=== PATIENT | female | born 1955 | race Caucasian/White ===

== ENCOUNTER → 2017-04-10 | Outpatient (CLI) | payer MEDICARE, MEDICAID ==
[~2017-04-10] MED LIST: DEPA500T2; RISP4TAB
--- NOTE | 2017-04-10 18:03 | REP ---
Clinical: Headache . Findings: Age-related atrophy and microvascular ischemic changes are appreciated. The ventricles and sulci are symmetric. Solorio-white differentiation is maintained. There is no evidence for acute intracranial hemorrhage, mass/mass effect, pathology or infarction. No extra-axial fluid collection. Calvarium is intact. Paranasal sinuses and mastoid air cells are clear. Impression: Age related atrophy and microvascular ischemic changes. No acute intracranial hemorrhage, infarction, or mass/mass effect. Signed by Beau Palomino MD 04/10/2017 05:55 P
== END ==
LOC: M RAD 17:29
PROVIDERS: ATTEND Family Medicine Addiction Medicine
DX: I67.82 Cerebral ischemia (principal); R51 Headache

== ENCOUNTER → 2017-06-15 | Outpatient (REF) | payer MEDICARE | LOC: M LAB REF 09:55 | PROVIDERS: ATTEND Physician Assistant Medical | DX: J02.9 Acute pharyngitis, unspecified (principal) ==

== ENCOUNTER → 2017-10-05 | Outpatient (REF) | payer OTHER, MEDICAID ==
[2017-10-05 19:39] LABS: HEMATOCRIT 43.3 % (36.0-47.0); MEAN CORPUSCULAR HEMOGLOBIN 29.9 pg (27.0-33.0); MEAN CORPUSCULAR HGB CONC 32.3 g/dl (32.0-36.5); MEAN CORPUSCULAR VOLUME 92.3 fl (80.0-96.0); PLATELET COUNT, AUTOMATED 307 10^3/uL (150-450); RED BLOOD COUNT 4.69 10^6/uL (4.00-5.40); RED CELL DISTRIBUTION WIDTH 12.6 % (11.5-14.5)
[2017-10-05 20:00] LABS: TOTAL 25(OH) VITAMIN D 23.5 NG/ML (30.0-100.0)
[2017-10-05 20:01] LABS: FOLATE 13.2 NG/ML (>5.4); VITAMIN B12 LEVEL 886 PG/ML (247-911)
[2017-10-05 20:09] LABS: ALBUMIN 3.8 GM/DL (3.2-5.2); ALBUMIN/GLOBULIN RATIO 1.09 (1.00-1.93); ALKALINE PHOSPHATASE 120 U/L (45-117); ALT/SGPT 33 U/L (12-78); ANION GAP 8 MEQ/L (8-16); AST/SGOT 25 U/L (7-37); BILIRUBIN,TOTAL 0.3 MG/DL (0.2-1.0); BLOOD UREA NITROGEN 9 MG/DL (7-18); CALCIUM LEVEL 9.3 MG/DL (8.8-10.2); CARBON DIOXIDE LEVEL 28 MEQ/L (21-32); CHLORIDE LEVEL 106 MEQ/L (98-107); CHOLESTEROL LEVEL 225 MG/DL (<200); CHOLESTEROL RISK RATIO 4.166 (<5); CREATININE FOR GFR 0.89 MG/DL (0.55-1.30); FREE T4 0.96 NG/DL (0.76-1.46); GLOMERULAR FILTRATION RATE > 60.0 (>45); GLUCOSE, FASTING 79 MG/DL (70-100); HDL CHOLESTEROL 54 MG/DL (>40); LDL CHOLESTEROL 129.2 MG/DL (<100); NON-HDL-C 171 MG/DL; POTASSIUM SERUM 4.1 MEQ/L (3.5-5.1); SODIUM LEVEL 142 MEQ/L (136-145); TOTAL PROTEIN 7.3 GM/DL (6.4-8.2); TRIGLYCERIDES LEVEL 209 MG/DL (<150)
[2017-10-05 20:38] LABS: ERYTHROCYTE SEDIMENTATION RATE 11 mm/hr (0-30)
== END ==
LOC: M SFHCADAM 13:38
DX: R10.9 Unspecified abdominal pain (principal); E78.5 Hyperlipidemia, unspecified; E55.9 Vitamin D deficiency, unspecified; M79.1 Myalgia

== ENCOUNTER → 2017-11-15 | Outpatient (CLI) | payer MEDICARE, OTHER, MEDICAID | LOC: M ADAMS 17:37 | DX: M26.609 Unspecified temporomandibular joint disorder, unspecified side (principal) | CPT/HCPCS: 70110 ==

== ENCOUNTER → 2017-12-14 | Outpatient (REF) | payer MEDICARE, MEDICAID | LOC: M LAB REF 17:23 | DX: Z12.4 Encounter for screening for malignant neoplasm of cervix (principal); N88.8 Other specified noninflammatory disorders of cervix uteri | CPT/HCPCS: G0123 ==

== ENCOUNTER → 2018-01-28 | Outpatient (CLI) | payer MEDICARE, MEDICAID | LOC: M RAD 13:16 | DX: Z12.31 Encounter for screening mammogram for malignant neoplasm of breast (principal) | CPT/HCPCS: 77067 ==

== ENCOUNTER 2019-12-31 10:49 | Inpatient (IN) | payer MEDICARE, MEDICAID ==
[~2019-12-31] VITALS: Ht 160 cm; Wt 64.6 kg
[2019-12-31] MEDS ORDERED: ALL10TAB29 PO (11:31)
[2019-12-31 12:11] LABS: HEMATOCRIT 41.1 % (36.0-47.0); HEMOGLOBIN 14.2 g/dl (12.0-15.5); MEAN CORPUSCULAR HGB CONC 34.5 g/dl (32.0-36.5); MEAN CORPUSCULAR VOLUME 89.7 fl (80.0-96.0); PLATELET COUNT, AUTOMATED 270 10^3/uL (150-450); RED BLOOD COUNT 4.58 10^6/uL (4.00-5.40); WHITE BLOOD COUNT 7.7 10^3/uL (4.0-10.0)
[2019-12-31 12:37] LABS: ACETAMINOPHEN LEVEL < 2.0 UG/ML (10.0-30.0); ALBUMIN 3.7 GM/DL (3.2-5.2); ALT/SGPT 28 U/L (12-78); BILIRUBIN,DIRECT < 0.1 MG/DL (0.0-0.2); BILIRUBIN,TOTAL 0.4 MG/DL (0.2-1.0); BLOOD UREA NITROGEN 10 MG/DL (7-18); CALCIUM LEVEL 9.2 MG/DL (8.8-10.2); CARBON DIOXIDE LEVEL 31 MEQ/L (21-32); CHLORIDE LEVEL 106 MEQ/L (98-107); ETHYL ALCOHOL (ETHANOL) < 0.003 % (0.000-0.010); GLOMERULAR FILTRATION RATE > 60.0 (>45); GLUCOSE, FASTING 96 MG/DL (70-100); POTASSIUM SERUM 4.1 MEQ/L (3.5-5.1); SALICYLATE LEVEL < 1.7 MG/DL (5.0-30.0); SODIUM LEVEL 142 MEQ/L (136-145); TOTAL PROTEIN 7.3 GM/DL (6.4-8.2)
[2019-12-31 13:20] LABS: AMPHETAMINES LEVEL URINE NEGATIVE (NEGATIVE); BARBITURATES URINE NEGATIVE (NEGATIVE); BENZODIAZEPINES URINE NEGATIVE (NEGATIVE); CANNABINOIDS URINE NEGATIVE (NEGATIVE); COCAINE METABOLITE URINE NEGATIVE (NEGATIVE); METHADONE URINE NEGATIVE (NEGATIVE); OPIATES URINE NEGATIVE (NEGATIVE); PHENCYCLIDINE URINE NEGATIVE (NEGATIVE)
[2019-12-31] MEDS ORDERED: BENA25CA4 PO (15:17)
[2019-12-31] MEDS ORDERED: ACET500T15 PO (15:19)
[2019-12-31] MEDS ORDERED: IBUP200T45 PO (15:19)
[2019-12-31] MEDS ORDERED: MOM 30ML SUSPENSION UDC PO PRN (16:15)
[2019-12-31] MEDS ORDERED: traZODone 50 MG TAB PO PRN (16:15)
[2019-12-31] MEDS ORDERED: ACETAMINOPHEN 500 MG TAB PO PRN (16:15)
[2019-12-31] MEDS ORDERED: IBUPROFEN 600 MG TAB PO PRN (16:15)
[2019-12-31] MEDS ORDERED: MAALOX 30 ML SUSP *UDC PO PRN (16:15)
[2019-12-31 20:06] VITALS: BP 120/69
[2020-01-01 06:14] VITALS: BP 122/71
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
--- NOTE | 2020-01-01 16:32 | HPEPDOC ---
General Date of Admission Dec 31, 2019 at 16:11 Date of Service: Jan 01, 2020 Chief Complaint The patient is a 64-year-old female who presents to the hospital with questionable suicidal/homicidal ideation History of Present Illness Patient is a 64-year-old female with past medical history of DLP, Psoriasis, vitamin D deficiency, depression/bipolar/schizophrenia and acid reflux who was brought to the hospital by police after reporting questionable suicidal/homicidal ideation. Patient was admitted to the inpatient mental health unit under the care of psychiatry. Hospitalist service was consulted for medical screening evaluation. Discussion with patient was very difficult as she was very tangential. However she did deny any headache, chest pain, shortness breath, palpitations, abdominal pain, constipation, diarrhea, or urinary discomfort at this time. Patient has reported some weight loss, however, its unclear if this is over last 2 months or last 2 years. Patient reports her appetite is poor. Home Medications Scheduled PRN Acetaminophen (Acetaminophen) 500 Mg Tablet, 1,000 MG PO Q6H PRN for HEADACHE, (Reported) Diphenhydramine HCl (Benadryl) 25 Mg Capsule, 25 MG PO Q6H PRN for ALLERGIES, (R eported) Ibuprofen (Ibu-200) 200 Mg Tablet, 600 MG PO Q6H PRN for HEADACHE, (Reported) Allergies Coded Allergies: Penicillins (Verified Allergy, Unknown, UNKNOWN CHILDHOOD REACTION, ) aripiprazole (Verified Adverse Reaction, Mild, WEIGHT GAIN, 12/31/19) risperidone (Verified Adverse Reaction, Mild, WEIGHT GAIN, 12/31/19) ziprasidone (Verified Adverse Reaction, Mild, WEIGHT GAIN, 12/31/19) Past Medical History Medical History DLP, Psoriasis, vitamin D deficiency, depression/bipolar/schizophrenia and acid reflux Surgical History Tubal ligation 1990 Family History - Mother with a history of breast cancer Social History - Denies the use of illicit drugs; patient is an active smoker and reports social alcohol use - Denies recent travel or sick contacts - Lives alone - Occupation; unemployed Review of Systems Other systems 10 point review of systems complete, all negative otherwise stated in HPI Vital Signs - Vitals: BP 122/71, HR 70, RR 14, Sat 97%RA, Temp 98.2F - General: Lying in bed, No acute distress, Speaking in full sentences, AAOx3 - HEENT: NC, AT, PERRLA, EOMI - CVS: RRR, +S1S2 - Lungs: Fair air entry bilaterally, No appreciable wheezing / rales / rhonchi - Abdomen: Soft, Non-distended, Non-tender - Extremities: No lower extremity edema, No calf tenderness - Neuro: No focal motor or sensory deficit - Skin: No visible rashes Plan / VTE VTE Prophylaxis Ordered?: Yes Plan Plan Depression / Bipolar / Schizophrenia - Reported suicidal/homicidal ideation - Patient is very tangential during history - Patient was admitted to the inpatient mental health unit under the care of psychiatry - Currently being managed by psychiatry DLP - Currently not on any medications - Will have outpatient follow up with PCP Psoriasis - Reports that she does not use any topical medications - She notes she uses gentle shampoos - Will have outpatient follow up with PCP Vitamin D deficiency - Will have outpatient follow up with PCP GERD - Currently not on any medications - Will start Omeprazole DVT prophylaxis - Will c/w early ambulation Female scanning coordinator was present throughout the duration of his history and physical examination Thank you for this consultation; please reconsult as needed GAMAL ALBARRAN MD Jan 01, 2020 16:32
[2020-01-01 17:28] VITALS: BP 123/68
[2020-01-01] MEDS ORDERED: OLANZapine ORAL DISINTEGRATING TAB 5MG PO PRN (18:15)
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
[2020-01-01] MEDS: PALIPERIDONE 3 MG ER TAB (INVEGA) PO SCH (21:04)
[2020-01-02 06:21] VITALS: BP 123/75
[2020-01-02] MEDS: PALIPERIDONE 3 MG ER TAB (INVEGA) PO SCH ×2 (08:28→20:47)
[2020-01-02] MEDS: OMEPRAZOLE 20 MG CAP PO SCH (08:28)
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
[2020-01-02 17:59] VITALS: BP 106/60
[2020-01-03 06:18] VITALS: BP 127/69
[2020-01-03] MEDS: OMEPRAZOLE 20 MG CAP PO SCH (09:00)
[2020-01-03] MEDS: PALIPERIDONE 3 MG ER TAB (INVEGA) PO SCH ×2 (09:00→22:06)
[2020-01-03 16:02] VITALS: BP 125/68
[2020-01-04 06:37] VITALS: BP 126/64
[2020-01-04] MEDS: OMEPRAZOLE 20 MG CAP PO SCH (08:14)
[2020-01-04] MEDS: PALIPERIDONE 3 MG ER TAB (INVEGA) PO SCH ×2 (08:14→21:03)
--- NOTE | 2020-01-04 11:15 | MHIPNPDOC ---
[facility] Progress Note Progress Note DOS: 01/04/2020 Patient met with today with nurse present for telehealth evaluation due to COVID Crisis Events Overnight:[none] Group Attendance:: infrequent Symptom changes (psych ROS): Affective: denies Psychotic:, denies, appears more focused today Anxiety: none Staff Report: patient is becoming more organized and less bizarre Medical ROS: [Gen: -fevers, chills] [Cardio: -chest pain, palpations] [Surprise: -SOB, cough] [GI: -N,V,D,C] [Neuro: -tremors, msk stiffness] [Derm: -rash] MSE: Vitals: Below [General: Well dressed with good hygiene Speech: Spontaneous and fluid Thought processes: Linear and logical Thought content: Future orientated Abstract reasoning, and computation: improving Description of associations: improving Description of abnormal or psychotic thoughts:Denies any suicidal or homicidal ideation. Denies any auditory or visual hallucinations. Does not appear to be responding to internal stimuli. Does not appear to be endorsing any bizarre or paranoid ideation. Judgment: improving Insight: improving Orientation: Alert and orientated 3 Recent and remote memory: Intact Attention span and concentration: Intact Fund of knowledge: Adequate Mood: "okay" Affect: improving] Vital Signs Vital Signs Date Time Temp Pulse Resp B/P (MAP) Pulse Ox O2 Delivery O2 Flow Rate FiO2 01/04/20 06:37 98.9 80 16 126/64 (84) 95 Room Air Current Medications Current Medications Medications (Trade) Dose Ordered Sig/Vesta Route PRN Reason Start Time Stop Time Status Last Admin Dose Admin Acetaminophen (Tylenol Tab) 1,000 mg Q6H PRN PO HEADACHE 12/31/19 16:15 01/02/20 00:54 Al Hydrox/Mg Hydrox/Simethicone (Mylanta) 30 ml Q4HP PRN PO HEARTBURN/INDIGESTION 12/31/19 16:15 Diphenhydramine HCl (Benadryl) 25 mg Q6H PRN PO ALLERGIES 12/31/19 16:15 Home Med (Med Rec Complete!) ASDIRECTED XX 12/31/19 15:30 12/31/19 15:21 DC Ibuprofen (Advil) 600 mg Q6H PRN PO HEADACHE 12/31/19 16:15 Magnesium Hydroxide (Milk Of Magnesia) 30 ml DAILYPRN PRN PO CONSTIPATION 12/31/19 16:15 Olanzapine (ZyPREXA ZYDIS) 5 mg QIDP PRN PO ANXIETY/AGITATION 01/01/20 18:15 Omeprazole (PriLOSEC) 20 mg DAILY PO 01/02/20 09:00 01/04/20 08:14 Paliperidone (Invega) 3 mg BID PO 01/01/20 21:00 01/04/20 08:14 Trazodone HCl (Desyrel) 50 mg QHSP PRN PO INSOMNIA 12/31/19 16:15 01/04/20 00:05 Allergies Coded Allergies: Penicillins (Verified Allergy, Unknown, UNKNOWN CHILDHOOD REACTION, 12/31/19) aripiprazole (Verified Adverse Reaction, Mild, WEIGHT GAIN, 12/31/19) risperidone (Verified Adverse Reaction, Mild, WEIGHT GAIN, 12/31/19) ziprasidone (Verified Adverse Reaction, Mild, WEIGHT GAIN, 12/31/19) Problems (1) Schizo affective schizophrenia Status: Acute Response to Treatment: Improving Problem Specific Plan: Monitor Clinically Problem Text: Continue paliperidone Plan / VTE VTE Prophylaxis Ordered?: No Plan Diet: Continue Current Activity: Continue Current Anticipated Discharge: Home FRANK RECIO DO Jan 04, 2020 11:15
[2020-01-04 15:53] VITALS: BP 102/65
[2020-01-05] MEDS: diphenhydrAMINE 25MG CAP PO PRN ×3 (01:16→22:40)
[2020-01-05 06:01] VITALS: BP 107/62
[2020-01-05] MEDS: PALIPERIDONE 3 MG ER TAB (INVEGA) PO SCH (08:50)
[2020-01-05] MEDS: OMEPRAZOLE 20 MG CAP PO SCH (09:00)
[2020-01-05 16:51] VITALS: BP 104/63
--- NOTE | 2020-01-05 19:10 | MHIPNPDOC ---
[facility] Progress Note Progress Note DATE OF SERVICE: 01/05/20 HISTORY: Patient is a 64 -year-old , female, who as per ED report: "Pt was brought to the ED by [place] [employer] on a 9.41 due to suspected decompensation. Pt has a hx of Schizophrenia, disorganized type and has been non-complaint with medication for several months. Daughter contacted ED requesting a shredder picker order due to pt's recent bizarre behavior. A well-check was issued and police reports she was making bizarre requests and was quite disorganized, therefore felt she required a MHE. Chief Complaint pt states, "I don't have Schizophrenia, my xhgbtwy-xy-ila did and he killed his ." Pt reports contacting police numerous times over the past few wks due towanting the psychologist chief to "open a case" at her local bank due to suspecting theft. She admits her acct has been locked and is requesting it be unlocked, so she can pursue the investigation. Pt is rambling during interview and is quite disorganized. Admits to and describes them as " the [employer] mary was making me uncomfortable, so I erased the mary" but it is unknown if AH is current or in her past? Pt notes she stopped taking her psychiatric medications "awhile" ago due to excessive weight gain which is triggering her steadily decompensation. She denies SI and HI, however children are concerned regarding her safety related to her bizarre behavior. Spoke to pt's daughter Jayshree Grover([phone]) who believes she is "reliving her past" and pt has been contacting police asking why her children were taken away from her. Daughter admits her parental rights were taken over 20 years ago. Other concerns were pt's grandchildren's "ice cream social" was cancelled by pt due to feeling everyone is against her, including all her grandchildren. According to daughter, she has received numerous phone calls from pt's housing authority and psychologist chief regarding pt's bizarre behavior and odd requests. It is unknown if pt has remained compliant with TLS?" VITAL SIGNS: See below. NEW TEST RESULTS: See below CURRENT MEDICATIONS: See below. MENTAL STATUS EXAMINATION: General Appearance: well groomed, appears stated age, hospital scrubs/clothing Build: average Demeanor: average Eye Contact: average Behavior: cooperative, calmer Speech: clear, spontaneous, tangential Mood: euthymic Affect: congruent with mood Thought Process: tangential an circumstantial Thought Content (Delusions): She still has some paranoid delusions mostly about her family Thought Content (Other): she doesn't seem internally preoccupied but she still reports auditory hallucinations and paranoid delusions although she denies SI/HI Thought Content (Aggressive): none reported Perception (Hallucinations): auditory hallucinations Perception (Other): none reported Cognition (Impairment of): memory, attention/concentration, ability to abstract Cognition(Intelligence Est.): average Oriented: Awake Insight: poor Judgment: Poor Psychosis: Associations, Abstract Thinking Diagnoses 1. Schizophrenia ASSESSMENT: Sheis still psychotic, I will increase Invega to 6 mgs PO at night and 3 mgs PO QAM for a total of 9 mgs PO daily MANAGEMENT PLAN: As above TIME SPENT: 20 minutes. Vital Signs Vital Signs Date Time Temp Pulse Resp B/P (MAP) Pulse Ox O2 Delivery O2 Flow Rate FiO2 01/05/20 06:01 97.5 73 14 107/62 (77) 01/04/20 06:37 95 Room Air Current Medications Current Medications Medications (Trade) Dose Ordered Sig/Vesta Route PRN Reason Start Time Stop Time Status Last Admin Dose Admin Acetaminophen (Tylenol Tab) 1,000 mg Q6H PRN PO HEADACHE 12/31/19 16:15 01/02/20 00:54 Al Hydrox/Mg Hydrox/Simethicone (Mylanta) 30 ml Q4HP PRN PO HEARTBURN/INDIGESTION 12/31/19 16:15 Diphenhydramine HCl (Benadryl) 25 mg Q6H PRN PO ALLERGIES 12/31/19 16:15 01/05/20 01:16 Home Med (Med Rec Complete!) ASDIRECTED XX 12/31/19 15:30 12/31/19 15:21 DC Ibuprofen (Advil) 600 mg Q6H PRN PO HEADACHE 12/31/19 16:15 Magnesium Hydroxide (Milk Of Magnesia) 30 ml DAILYPRN PRN PO CONSTIPATION 12/31/19 16:15 Olanzapine (ZyPREXA ZYDIS) 5 mg QIDP PRN PO ANXIETY/AGITATION 01/01/20 18:15 Omeprazole (PriLOSEC) 20 mg DAILY PO 01/02/20 09:00 01/04/20 08:14 Paliperidone (Invega) 3 mg BID PO 01/01/20 21:00 01/05/20 08:50 Trazodone HCl (Desyrel) 50 mg QHSP PRN PO INSOMNIA 12/31/19 16:15 01/04/20 00:05 Allergies Coded Allergies: Penicillins (Verified Allergy, Unknown, UNKNOWN CHILDHOOD REACTION, 12/31/19) aripiprazole (Verified Adverse Reaction, Mild, WEIGHT GAIN, 12/31/19) risperidone (Verified Adverse Reaction, Mild, WEIGHT GAIN, 12/31/19) ziprasidone (Verified Adverse Reaction, Mild, WEIGHT GAIN, 12/31/19) CRYSTAL BENNETT MD Jan 05, 2020 10:41
[2020-01-05] MEDS: PALIPERIDONE 6 MG ER TAB (INVEGA) PO SCH (20:33)
[2020-01-06 06:17] VITALS: BP 133/80
[2020-01-06] MEDS: OMEPRAZOLE 20 MG CAP PO SCH (09:06)
[2020-01-06] MEDS: PALIPERIDONE 3 MG ER TAB (INVEGA) PO SCH (09:07)
[2020-01-06] MEDS: diphenhydrAMINE 25MG CAP PO PRN ×2 (11:03→18:29)
[2020-01-06] MEDS: POLYVINYL ALCOHOL OPHTH SOLN 15 ML(LIQUITEARS) OU PRN (11:03)
[2020-01-06 16:26] VITALS: BP 115/67
--- NOTE | 2020-01-06 19:30 | MHIPNPDOC ---
[facility] Progress Note Progress Note DATE OF SERVICE: 01/06/20 HISTORY: Patient is a 64 -year-old , female, who as per ED report: "Pt was brought to the ED by [place] [employer] on a 9.41 due to suspected decompensation. Pt has a hx of Schizophrenia, disorganized type and has been non-complaint with medication for several months. Daughter contacted ED requesting a quill picking machine operator order due to pt's recent bizarre behavior. A well-check was issued and police reports she was making bizarre requests and was quite disorganized, therefore felt she required a MHE. Chief Complaint pt states, "I don't have Schizophrenia, my umvkeda-vm-dyt did and he killed his ." Pt reports contacting police numerous times over the past few wks due towanting the chief service dispatcher to "open a case" at her local bank due to suspecting theft. She admits her acct has been locked and is requesting it be unlocked, so she can pursue the investigation. Pt is rambling during interview and is quite disorganized. Admits to and describes them as " the [employer] mary was making me uncomfortable, so I erased the mary" but it is unknown if AH is current or in her past? Pt notes she stopped taking her psychiatric medications "awhile" ago due to excessive weight gain which is triggering her steadily decompensation. She denies SI and HI, however children are concerned regarding her safety related to her bizarre behavior. Spoke to pt's daughter Jayshree Grover([phone]) who believes she is "reliving her past" and pt has been contacting police asking why her children were taken away from her. Daughter admits her parental rights were taken over 20 years ago. Other concerns were pt's grandchildren's "ice cream social" was cancelled by pt due to feeling everyone is against her, including all her grandchildren. According to daughter, she has received numerous phone calls from pt's housing authority and chief service dispatcher regarding pt's bizarre behavior and odd requests. It is unknown if pt has remained compliant with TLS?" VITAL SIGNS: See below. NEW TEST RESULTS: See below CURRENT MEDICATIONS: See below. MENTAL STATUS EXAMINATION: General Appearance: well groomed, appears stated age, hospital scrubs/clothing Build: average Demeanor: average Eye Contact: average Behavior: cooperative, calmer Speech: clear, spontaneous, tangential and circumstantial Mood: euthymic Affect: congruent with mood Thought Process: tangential an circumstantial Thought Content (Delusions): She continues to report some paranoid delusions mostly about her family Thought Content (Other): Some auditory hallucinations and paranoid delusions about family members Thought Content (Aggressive): none reported Perception (Hallucinations): auditory hallucinations Perception (Other): none reported Cognition (Impairment of): memory, attention/concentration, ability to abstract Cognition(Intelligence Est.): average Oriented: Awake Insight: poor Judgment: Poor Psychosis: Associations, Abstract Thinking Diagnoses 1. Schizophrenia ASSESSMENT: Her thought process is still disorganized and she says her family is paranoid and they tell her that she is paranoid. She projects herself on her family. She says she has angry thoughts about her family. She is not suicidal or homicidal but she is disorganized and paranoid. Will ask Pusher Runner yp speak with her daughter to assess if patient has improved or not. Her staff Nurse and i asked her to contact her daughter so that she can let us know if mathieu has improved or not in order to decide discharging her. MANAGEMENT PLAN: Will continue Invega 6 mgs PO QHS and 3 mgs PO QAM TIME SPENT: 20 minute Vital Signs Vital Signs Date Time Temp Pulse Resp B/P (MAP) Pulse Ox O2 Delivery O2 Flow Rate FiO2 01/06/20 16:26 97.8 88 18 115/67 (83) 01/06/20 06:17 Room Air 01/04/20 06:37 95 Current Medications Current Medications Medications (Trade) Dose Ordered Sig/Vesta Route PRN Reason Start Time Stop Time Status Last Admin Dose Admin Acetaminophen (Tylenol Tab) 1,000 mg Q6H PRN PO HEADACHE 12/31/19 16:15 01/02/20 00:54 Al Hydrox/Mg Hydrox/Simethicone (Mylanta) 30 ml Q4HP PRN PO HEARTBURN/INDIGESTION 12/31/19 16:15 Artificial Tears (Akwa Tears) 2 drop QIDP PRN OU DRY EYES 01/05/20 11:45 01/06/20 11:03 Diphenhydramine HCl (Benadryl) 25 mg Q6H PRN PO ALLERGIES 12/31/19 16:15 01/06/20 18:29 Home Med (Med Rec Complete!) ASDIRECTED XX 12/31/19 15:30 12/31/19 15:21 DC Ibuprofen (Advil) 600 mg Q6H PRN PO HEADACHE 12/31/19 16:15 Magnesium Hydroxide (Milk Of Magnesia) 30 ml DAILYPRN PRN PO CONSTIPATION 12/31/19 16:15 Olanzapine (ZyPREXA ZYDIS) 5 mg QIDP PRN PO ANXIETY/AGITATION 01/01/20 18:15 Omeprazole (PriLOSEC) 20 mg DAILY PO 01/02/20 09:00 01/06/20 09:06 Paliperidone (Invega) 3 mg BID PO 01/01/20 21:00 01/05/20 10:46 DC 01/05/20 08:50 Paliperidone (Invega) 3 mg QAM PO 01/06/20 09:00 01/06/20 09:07 Paliperidone (Invega) 6 mg QHS PO 01/05/20 21:00 01/05/20 20:33 Trazodone HCl (Desyrel) 50 mg QHSP PRN PO INSOMNIA 12/31/19 16:15 01/04/20 00:05 Allergies Coded Allergies: Penicillins (Verified Allergy, Unknown, UNKNOWN CHILDHOOD REACTION, 12/31/19) aripiprazole (Verified Adverse Reaction, Mild, WEIGHT GAIN, 12/31/19) risperidone (Verified Adverse Reaction, Mild, WEIGHT GAIN, 12/31/19) ziprasidone (Verified Adverse Reaction, Mild, WEIGHT GAIN, 12/31/19) CRYSTAL BENNETT MD Jan 06, 2020 19:30
[2020-01-06] MEDS: PALIPERIDONE 6 MG ER TAB (INVEGA) PO SCH (20:07)
[2020-01-07 06:21] VITALS: BP 109/54
[2020-01-07] MEDS: POLYVINYL ALCOHOL OPHTH SOLN 15 ML(LIQUITEARS) OU PRN ×3 (09:36→20:55)
[2020-01-07] MEDS: PALIPERIDONE 3 MG ER TAB (INVEGA) PO SCH (09:36)
[2020-01-07] MEDS: OMEPRAZOLE 20 MG CAP PO SCH (09:36)
[2020-01-07] MEDS: diphenhydrAMINE 25MG CAP PO PRN (14:24)
[2020-01-07 16:12] VITALS: BP 122/85
[2020-01-07] MEDS ORDERED: OLANZapine ORAL DISINTEGRATING TAB 5MG PO STA (17:27)
[2020-01-07] MEDS ORDERED: LORazepam 1 MG TAB PO PRN (18:00)
--- NOTE | 2020-01-07 18:24 | MHIPNPDOC ---
[facility] Progress Note Progress Note DATE OF SERVICE: 01/07/20 DATE OF SERVICE: 01/06/20 HISTORY: Patient is a 64 -year-old , female, who as per ED report: "Pt was brought to the ED by [place] [employer] on a 9.41 due to suspected decompensation. Pt has a hx of Schizophrenia, disorganized type and has been non-complaint with medication for several months. Daughter contacted ED requesting a curing pickling packer order due to pt's recent bizarre behavior. A well-check was issued and police reports she was making bizarre requests and was quite disorganized, therefore felt she required a MHE. Chief Complaint pt states, "I don't have Schizophrenia, my tybxhqm-mr-qwe did and he killed his ." Pt reports contacting police numerous times over the past few wks due towanting the chief mechanical officer to "open a case" at [place] due to suspecting theft. She admits her acct has been locked and is requesting it be unlocked, so she can pursue the investigation. Pt is rambling during interview and is quite disorganized. Admits to and describes them as " the [employer] mary was making me uncomfortable, so I erased the mary" but it is unknown if AH is current or in her past? Pt notes she stopped taking her psychiatric medications "awhile" ago due to excessive weight gain which is triggering her steadily decompensation. She denies SI and HI, however children are concerned regarding her safety related to her bizarre behavior. Spoke to pt's daughter Jayshree Grover([phone]) who believes she is "reliving her past" and pt has been contacting police asking why her children were taken away from her. Daughter admits her parental rights were taken over 20 years ago. Other concerns were pt's grandchildren's "ice cream social" was cancelled by pt due to feeling everyone is against her, including all her grandchildren. According to daughter, she has received numerous phone calls from pt's housing authority and chief mechanical officer regarding pt's bizarre behavior and odd requests. It is unknown if pt has remained compliant with TLS?" VITAL SIGNS: See below. NEW TEST RESULTS: See below CURRENT MEDICATIONS: See below. MENTAL STATUS EXAMINATION: General Appearance: well groomed, appears stated age, hospital scrubs/clothing Build: average Demeanor: average Eye Contact: average Behavior: uncooperative, irritable, argumentative Speech: clear, spontaneous, tangential and circumstantial Mood: angry and irritable Affect: congruent with mood Thought Process: tangential an circumstantial, a little less disorganized Thought Content (Delusions): She has paranoid thoughts Thought Content (Other): Still has paranoid delusions Thought Content (Aggressive): none reported Perception (Hallucinations): auditory hallucinations Perception (Other): none reported Cognition (Impairment of): memory, attention/concentration, ability to abstract Cognition(Intelligence Est.): average Oriented: Awake Insight: poor Judgment: Poor Psychosis: Associations, Abstract Thinking Diagnoses 1. Schizophrenia ASSESSMENT: She is very paranoid and very irritable today. She is demanding to be discharge. She is not responding to medications, will discontinue Invega and will start him on Zyprexa Zydis 10 mgs PO BID and Zyprexa 5 mgs PO BIDP for agitation. MANAGEMENT PLAN: Discontinue Invega, start Olanzapine TIME SPENT: 20 minute Vital Signs Vital Signs Date Time Temp Pulse Resp B/P (MAP) Pulse Ox O2 Delivery O2 Flow Rate FiO2 01/07/20 16:12 97.8 94 18 122/85 (97) 01/07/20 06:21 Room Air 01/04/20 06:37 95 Current Medications Current Medications Medications (Trade) Dose Ordered Sig/Vesta Route PRN Reason Start Time Stop Time Status Last Admin Dose Admin Acetaminophen (Tylenol Tab) 1,000 mg Q6H PRN PO HEADACHE 12/31/19 16:15 01/02/20 00:54 Al Hydrox/Mg Hydrox/Simethicone (Mylanta) 30 ml Q4HP PRN PO HEARTBURN/INDIGESTION 12/31/19 16:15 Artificial Tears (Akwa Tears) 2 drop QIDP PRN OU DRY EYES 01/05/20 11:45 01/07/20 14:24 Diphenhydramine HCl (Benadryl) 25 mg Q6H PRN PO ALLERGIES 12/31/19 16:15 01/07/20 14:24 Home Med (Med Rec Complete!) ASDIRECTED XX 12/31/19 15:30 12/31/19 15:21 DC Ibuprofen (Advil) 600 mg Q6H PRN PO HEADACHE 12/31/19 16:15 Magnesium Hydroxide (Milk Of Magnesia) 30 ml DAILYPRN PRN PO CONSTIPATION 12/31/19 16:15 Olanzapine (ZyPREXA ZYDIS) 5 mg QIDP PRN PO ANXIETY/AGITATION 01/01/20 18:15 Cancel Olanzapine (ZyPREXA ZYDIS) 5 mg STAT STAT PO 01/07/20 17:27 01/07/20 17:30 DC 01/07/20 17:34 Olanzapine (ZyPREXA ZYDIS) 10 mg BID PO 01/07/20 21:00 Omeprazole (PriLOSEC) 20 mg DAILY PO 01/02/20 09:00 01/07/20 09:36 Paliperidone (Invega) 3 mg BID PO 01/01/20 21:00 01/05/20 10:46 DC 01/05/20 08:50 Paliperidone (Invega) 3 mg QAM PO 01/06/20 09:00 01/07/20 17:27 DC 01/07/20 09:36 Paliperidone (Invega) 6 mg QHS PO 01/05/20 21:00 01/07/20 17:27 DC 01/06/20 20:07 Trazodone HCl (Desyrel) 50 mg QHSP PRN PO INSOMNIA 12/31/19 16:15 01/04/20 00:05 Allergies Coded Allergies: Penicillins (Verified Allergy, Unknown, UNKNOWN CHILDHOOD REACTION, 12/31/19) aripiprazole (Verified Adverse Reaction, Mild, WEIGHT GAIN, 12/31/19) risperidone (Verified Adverse Reaction, Mild, WEIGHT GAIN, 12/31/19) ziprasidone (Verified Adverse Reaction, Mild, WEIGHT GAIN, 12/31/19) CRYSTAL BENNETT MD Jan 07, 2020 18:13
[2020-01-07] MEDS: OLANZapine ORAL DISINTEGRATING TAB 5MG PO SCH (20:56)
[2020-01-08] MEDS: POLYVINYL ALCOHOL OPHTH SOLN 15 ML(LIQUITEARS) OU PRN ×2 (04:01→08:46)
[2020-01-08 06:31] VITALS: BP 111/68
[2020-01-08] MEDS: OLANZapine ORAL DISINTEGRATING TAB 5MG PO SCH (08:45)
[2020-01-08] MEDS: OMEPRAZOLE 20 MG CAP PO SCH (08:46)
[2020-01-08] MEDS ORDERED: TRAZ-252 PO (12:04)
[2020-01-08] MEDS ORDERED: POLYOPD OU (12:04)
[2020-01-08] MEDS ORDERED: OLAN10TA2 PO (12:04)
[2020-01-08] MEDS ORDERED: OMEP-218 PO (12:04)
[2020-01-08] MEDS ORDERED: ATIV1TAB7 PO (12:04)
--- NOTE | 2020-01-08 17:35 | MHDSPDOC ---
[facility] Discharge Summary Discharge Summary DATE OF ADMISSION: Dec 31, 2019 at 16:11 DATE OF DISCHARGE: Jan 08, 2020 at 15:27 DISCHARGE DIAGNOSES: 1. paranoid schizophrenia REASON FOR ADMISSION: Patient is a 64 -year-old , female, who as per ED report: "Pt was brought to the ED by [place] [employer] on a 9.41 due to suspected decompensation. Pt has a hx of Schizophrenia, disorganized type and has been non-complaint with medication for several months. Daughter contacted ED requesting a pick out hand order due to pt's recent bizarre behavior. A well-check was issued and police reports she was making bizarre requests and was quite disorganized, therefore felt she required a MHE. Chief Complaint pt states, "I don't have Schizophrenia, my conoios-rc-nig did and he killed his ." Pt reports contacting police numerous times over the past few wks due towanting the deputy editor in chief to "open a case" at her local bank due to suspecting theft. She admits her acct has been locked and is requesting it be unlocked, so she can pursue the investigation. Pt is rambling during interview and is quite disorganized. Admits to and describes them as " the [employer] mary was making me uncomfortable, so I erased the mary" but it is unknown if AH is current or in her past? Pt notes she stopped taking her psychiatric medications "awhile" ago due to excessive weight gain which is triggering her steadily decompensation. She denies SI and HI, however children are concerned regarding her safety related to her bizarre behavior. Spoke to pt's daughter Jayshree Grover([phone]) who believes she is "reliving her past" and pt has been contacting police asking why her children were taken away from her. Daughter admits her parental rights were taken over 20 years ago. Other concerns were pt's grandchildren's "ice cream social" was cancelled by pt due to feeling everyone is against her, including all her grandchildren. According to daughter, she has received numerous phone calls from pt's housing authority and deputy editor in chief regarding pt's bizarre behavior and odd requests. It is unknown if pt has remained compliant with TLS?" CONSULTANTS INVOLVED: None TREATMENT AND PROGRESS ON THE UNIT : The patient has a h/o schizophrenia, she has been hospitalized previously and according to her daughter serg she has been compliant with medications she has been stable but she has periods when she decides not to take medications anymore and becomes psychotic once again. She h as been preoccupied about her weight, since she was admitted and she also mantioned she has taken Risperdal in the past, adding that she gained weight. Her thought process has been disorganized, has been very paranoid, more so about her family members. She reported auditory hallucinations, as if it would be a radio or ais if she would be listening to some songs. She was treated with Invega, initially 3 mgs PO BID and then I increased it to 6 mgs PO QHS and 3 mgs PO QAM but she didn't have a good response. However she had a very good response to Zyprexa Aydis. She has not been violent, aggressive or threatening to staff members. She has called one of her daughters on the phone and she told the Coffee Host, yesterday that had no concerns about her mother being discharged. This morning the patient was calmer, her thoughts were more organized, she was less irritable and her paranoia had decreased. HOSPITAL COURSE: As above DISCHARGE ASSESSMENT: The patient was not in danger to self or others, she was not homicidal, not suicidal and although some of her thoughts were disorganized, she was not hallucinating at the time of her discharge. She felt less paranoid about her family. Her daughter has said this is what could be considered her baseline. She is future orientated, she wants to go back to her apartment. MENTAL STATUS EXAMINATION ON DISCHARGE: Patient is a 64-year old female, who is alert, cooperative, dressed in hospital clothes. Speech is circumstantial/tangential at times but it is better now. Spontaneous and fluent. Less talkative. Normal tone and volume. Language skills are fair. Thought processes including: still mildly disorganized but they are less tangential. Thought content: goal directed. Negative for SI/HI. She reports mild paranoid ideation about some family members, but denies any desire to herm them Description of associations: somewhat loose Description of abnormal or psychotic thoughts: Denies TAV hallucinations, some paranoid thoughts regarding family members. Denies SI/HI Judgment: Improving Insight: Improving. Orientation to x 3. Recent and remote memory: remote memory is not very good. Attention span and concentration: fair. Language: adequate. Fund of knowledge: average Mood: euthymic Affect: congruent with mood MEDICATIONS ON DISCHARGE: Scheduled Olanzapine (Olanzapine) 10 Mg Tablet, 10 MG PO BID for psychosis/mood, #14 Omeprazole (Omeprazole) 20 Mg Capsule.dr, 20 MG PO DAILY for GERD, #7 Scheduled PRN Diphenhydramine HCl (Benadryl) 25 Mg Capsule, 25 MG PO Q6H PRN for ALLERGIES, (Reported) Ibuprofen (Ibu-200) 200 Mg Tablet, 600 MG PO Q6H PRN for HEADACHE, (Reported) Lorazepam (Ativan) 1 Mg Tablet, 1 MG PO TIDP PRN for ANXIETY/AGITATION, #21 Polyvinyl Alcohol (Artificial Tears) 15 Ml Drops, 2 DROP OU QIDP PRN for DRY EYES, #1 Trazodone HCl (Trazodone HCl) 50 Mg Tablet, 50 MG PO QHSP PRN for INSOMNIA, #7 PLAN/FOLLOWUP ARRANGEMENTS: Follow Up Care Education Label * Medical * Medical Follow Up [facility] * Established With This Provider Yes * Therapist Carolyn Espino * Date Jan 15, 2020 * Time 09:30 * Address of Clinic or Practice [id number] * Follow Up Care Education Label * Mental Health Appt 1 * Medical Follow Up [facility] * Established With This Provider Yes * Therapist Belem Santizo * Date Jan 09, 2020 * Time 09:00 * Address of Clinic or Practice [address] [place] [address] * * Additional information This appointment will be over the phone due to COVID 19. The amount of time spent in the coordination of care for this patient was approximately 30 minutes. Vital Signs/I&Os Vital Signs Date Time Temp Pulse Resp B/P (MAP) Pulse Ox O2 Delivery O2 Flow Rate FiO2 01/08/20 06:31 98.4 88 14 111/68 (82) 95 Room Air Medications Scheduled Olanzapine (Olanzapine) 10 Mg Tablet, 10 MG PO BID for psychosis/mood, #14 Omeprazole (Omeprazole) 20 Mg Capsule.dr, 20 MG PO DAILY for GERD, #7 Scheduled PRN Diphenhydramine HCl (Benadryl) 25 Mg Capsule, 25 MG PO Q6H PRN for ALLERGIES, (Reported) Ibuprofen (Ibu-200) 200 Mg Tablet, 600 MG PO Q6H PRN for HEADACHE, (Reported) Lorazepam (Ativan) 1 Mg Tablet, 1 MG PO TIDP PRN for ANXIETY/AGITATION, #21 Polyvinyl Alcohol (Artificial Tears) 15 Ml Drops, 2 DROP OU QIDP PRN for DRY EYES, #1 Trazodone HCl (Trazodone HCl) 50 Mg Tablet, 50 MG PO QHSP PRN for INSOMNIA, #7 Allergies Coded Allergies: Penicillins (Verified Allergy, Unknown, UNKNOWN CHILDHOOD REACTION, 12/31/19) aripiprazole (Verified Adverse Reaction, Mild, WEIGHT GAIN, 12/31/19) risperidone (Verified Adverse Reaction, Mild, WEIGHT GAIN, 12/31/19) ziprasidone (Verified Adverse Reaction, Mild, WEIGHT GAIN, 12/31/19) CRYSTAL BENNETT MD Jan 08, 2020 17:35
[2020-01-08] MEDS ORDERED: OLANZapine 10 MG TAB PO SCH (21:00)
[2020-01-09] MEDS ORDERED: OLANZapine 10 MG TAB PO SCH (09:00)
== END 2020-01-08 15:27 | disposition home or self-care (01) | DRG 885 ==
LOC: M ED 10:49 → M ED INP 16:11 → M PSY 20:09
PROVIDERS: ADMIT Psychiatry & Neurology Addiction Medicine; ATTEND Psychiatry & Neurology Psychiatry
DX: F20.0 Paranoid schizophrenia (principal); E78.5 Hyperlipidemia, unspecified; L40.9 Psoriasis, unspecified; E55.9 Vitamin D deficiency, unspecified; K21.9 Gastro-esophageal reflux disease without esophagitis; F17.200 Nicotine dependence, unspecified, uncomplicated; Z91.14 Patient's other noncompliance with medication regimen; Z79.899 Other long term (current) drug therapy; Z88.0 Allergy status to penicillin; Z88.8 Allergy status to other drugs, medicaments and biological substances

== ENCOUNTER 2021-12-10 10:21 | Emergency (ER) | payer MEDICARE, MEDICAID ==
[~2021-12-10] VITALS: Ht 160 cm; Wt 51.0 kg
[~2021-12-10 10:21] MED LIST changes: +ACET500T15 PO; +ATIV1TAB7 PO; +BENA25CA4 PO; +CETI-24 PO; +IBUP200T46 PO; +OLAN1TAB20 PO; +OMEP-173 PO; +POLYOPD OU; +TRAZ-252 PO
[2021-12-10 10:22] VITALS: BP 115/61
== END 2021-12-10 11:30 | disposition left against medical advice (07) ==
LOC: M ED 10:21
DX: Z53.21 Procedure and treatment not carried out due to patient leaving prior to being seen by health care provider (principal)

== ENCOUNTER → 2022-01-24 | Outpatient (REF) | payer MEDICARE, MEDICAID ==
[2022-01-24 18:08] LABS: HEMOGLOBIN A1c 5.4 %
[2022-01-24 18:25] LABS: ALBUMIN 3.5 GM/DL (3.2-5.2); ALT/SGPT 30 U/L (12-78); BILIRUBIN,TOTAL 0.6 MG/DL (0.2-1.0); BLOOD UREA NITROGEN 9 MG/DL (7-18); CALCIUM LEVEL 8.7 MG/DL (8.8-10.2); CARBON DIOXIDE LEVEL 29 MEQ/L (21-32); CHLORIDE LEVEL 106 MEQ/L (98-107); CHOLESTEROL LEVEL 173 MG/DL (<200); CHOLESTEROL RISK RATIO 3.326 (<5); CREATININE FOR GFR 0.88 MG/DL (0.55-1.30); GLOMERULAR FILTRATION RATE > 60.0 (>45); GLUCOSE, FASTING 77 MG/DL (70-100); HDL CHOLESTEROL 52 MG/DL (>40); LDL CHOLESTEROL 99 MG/DL (<100); NON-HDL-C 121 MG/DL; POTASSIUM SERUM 3.5 MEQ/L (3.5-5.1); SODIUM LEVEL 140 MEQ/L (136-145); TOTAL PROTEIN 6.7 GM/DL (6.4-8.2); TRIGLYCERIDES LEVEL 110 MG/DL (<150)
[2022-01-24 18:34] LABS: TOTAL 25(OH) VITAMIN D 38.6 NG/ML (30.0-100.0)
[2022-01-24 19:13] LABS: HEPATITIS C VIRUS ABY INDEX 0.1 INDEX (<0.8)
[2022-01-24 19:14] LABS: HIV 1&2 SCREEN CENTAUR NEGATIVE (NEGATIVE)
== END ==
LOC: M LAB REF 17:19
PROVIDERS: ATTEND Nurse Practitioner Family
DX: Z11.9 Encounter for screening for infectious and parasitic diseases, unspecified (principal); Z13.228 Encounter for screening for other metabolic disorders

== ENCOUNTER 2022-07-10 11:24 | Emergency (ER) | payer MEDICARE, MEDICAID ==
[~2022-07-10] VITALS: Ht 165.1 cm; Wt 47.5 kg
[2022-07-10 14:19] LABS: RSV AMPLIFICATION NEGATIVE (NEGATIVE)
[2022-07-10] MEDS ORDERED: ALBUTEROL SULFATE 2.5 MG/0.5 ML INH NEB SOLN NEB ONE (16:45)
[2022-07-10 17:01] VITALS: O2SAT 96
[2022-07-10] MEDS ORDERED: MOME13HF7 INH (17:37)
[2022-07-10] MEDS ORDERED: VENTAER INH (17:37)
[2022-07-10 18:17] VITALS: BP 135/70
== END 2022-07-10 18:32 | disposition home or self-care (01) ==
LOC: M ED 11:24
DX: J44.1 Chronic obstructive pulmonary disease with (acute) exacerbation (principal); J45.909 Unspecified asthma, uncomplicated; R51.9 Headache, unspecified; F32.A Depression, unspecified; F20.9 Schizophrenia, unspecified; F17.200 Nicotine dependence, unspecified, uncomplicated; Z88.0 Allergy status to penicillin; Z88.1 Allergy status to other antibiotic agents; Z79.51 Long term (current) use of inhaled steroids; Z79.899 Other long term (current) drug therapy; Z79.52 Long term (current) use of systemic steroids

== ENCOUNTER → 2022-11-14 | Outpatient (REF) | payer MEDICARE, MEDICAID ==
[~2022-11-14] MED LIST changes: +ARTIDRO4 OU; +MOME13HF7 INH; -POLYOPD OU; +VENTAER INH
== END ==
LOC: M SFHCDERM 15:36
PROVIDERS: ATTEND Nurse Practitioner Family
DX: B35.0 Tinea barbae and tinea capitis (principal)

== ENCOUNTER 2023-02-27 10:49 | Emergency (ER) | payer MEDICARE, MEDICAID ==
[~2023-02-27] VITALS: Ht 160 cm; Wt 56.8 kg
[2023-02-27] MEDS ORDERED: IPRATROPIUM 0.5MG/ALBUTEROL 2.5MG INH SOL UD 3ML (DUONEB) NEB ONE (11:25)
[2023-02-27] MEDS ORDERED: ALBU2.5V10 NEB (12:43)
[2023-02-27] MEDS ORDERED: PRED20TA PO (12:44)
[2023-02-27] MEDS ORDERED: NEBU1EAC78 MC (12:44)
[2023-02-27 12:45] VITALS: BP 113/73
[2023-02-27 12:46] VITALS: O2SAT 92
[2023-02-27 12:49] VITALS: TEMP 96.7; O2SAT 98
== END 2023-02-27 13:00 | disposition home or self-care (01) ==
LOC: EDSEX 10:49 → M ED 10:49 → EDBD 10:49 → M ED 13:00
DX: J06.9 Acute upper respiratory infection, unspecified (principal); R06.2 Wheezing; E78.5 Hyperlipidemia, unspecified; K21.9 Gastro-esophageal reflux disease without esophagitis; F20.9 Schizophrenia, unspecified; F32.A Depression, unspecified; F31.9 Bipolar disorder, unspecified; F17.200 Nicotine dependence, unspecified, uncomplicated; Z88.0 Allergy status to penicillin; Z91.018 Allergy to other foods; Z88.8 Allergy status to other drugs, medicaments and biological substances; Z79.51 Long term (current) use of inhaled steroids; Z79.899 Other long term (current) drug therapy

== ENCOUNTER → 2023-04-09 | Outpatient (REF) | payer MEDICARE, MEDICAID ==
[~2023-04-09] MED LIST changes: +ALBU2.5V10 NEB; +NEBU1EAC78 MC; +PRED20TA PO
[2023-04-09 19:15] LABS: BASO # 0.1 10^3/uL (0.0-0.2); BASO % 0.8 % (0.0-1.0); EOS # 0.3 10^3/uL (0.0-0.5); EOS % 3.4 % (0.0-3.0); HEMATOCRIT 40.9 % (36.0-47.0); HEMOGLOBIN 13.3 g/dl (12.0-15.5); LYMPH % 27.6 % (24.0-44.0); MEAN CORPUSCULAR HEMOGLOBIN 30.6 pg (27.0-33.0); MEAN CORPUSCULAR HGB CONC 32.5 g/dl (32.0-36.5); MEAN CORPUSCULAR VOLUME 94.2 fl (80.0-96.0); MONO # 0.7 10^3/uL (0.0-0.8); MONO % 9.4 % (2.0-8.0); NEUTROPHILS # 4.3 10^3/uL (1.5-8.5); NEUTROPHILS % 58.5 % (36.0-66.0); PLATELET COUNT, AUTOMATED 253 10^3/uL (150-450); RED BLOOD COUNT 4.34 10^6/uL (4.00-5.40); WHITE BLOOD COUNT 7.4 10^3/uL (4.0-10.0)
[2023-04-09 19:45] LABS: THYROID STIMULATING HORMONE 1.821 uIU/ML (0.55-4.78); TOTAL 25(OH) VITAMIN D 27.5 NG/ML (20.0-100.0)
[2023-04-09 19:46] LABS: ALBUMIN 3.4 G/DL (3.2-5.2); ALKALINE PHOSPHATASE 112 U/L (46-116); ALT/SGPT 22 U/L (7.0-40); AST/SGOT 16 U/L (<34); BILIRUBIN,TOTAL 0.2 MG/DL (0.3-1.2); BLOOD UREA NITROGEN 10 MG/DL (9-23); CALCIUM LEVEL 9.1 MG/DL (8.3-10.6); CARBON DIOXIDE LEVEL 30 MMOL/L (20-31); CHLORIDE LEVEL 107 MMOL/L (98-107); CREATININE FOR GFR 0.79 MG/DL (0.55-1.30); GLOMERULAR FILTRATION RATE > 60.0 (>45); GLUCOSE, FASTING 92 MG/DL (74-106); POTASSIUM SERUM 4.1 MMOL/L (3.5-5.1); SODIUM LEVEL 141 MMOL/L (136-145); TOTAL PROTEIN 6.2 G/DL (5.7-8.2)
== END ==
LOC: M LAB REF 17:39
PROVIDERS: ATTEND Nurse Practitioner Family
DX: Z00.00 Encounter for general adult medical examination without abnormal findings (principal); J45.20 Mild intermittent asthma, uncomplicated; E55.9 Vitamin D deficiency, unspecified

== ENCOUNTER 2023-08-14 22:03 | Emergency (ER) | payer MEDICARE, MEDICAID ==
[~2023-08-14] VITALS: Ht 160 cm; Wt 54.5 kg
[2023-08-14] MEDS ORDERED: methylPREDNISolone 125MG 2ML VIAL IV ONE (22:50)
[2023-08-14 23:24] LABS: BASO # 0.1 10^3/uL (0.0-0.2); BASO % 0.6 % (0.0-1.0); EOS # 0.6 10^3/uL (0.0-0.5); EOS % 5.9 % (0.0-3.0); HEMATOCRIT 44.5 % (36.0-47.0); HEMOGLOBIN 14.8 g/dl (12.0-15.5); LYMPH # 1.6 10^3/uL (1.5-5.0); LYMPH % 14.5 % (24.0-44.0); MEAN CORPUSCULAR HEMOGLOBIN 30.8 pg (27.0-33.0); MEAN CORPUSCULAR HGB CONC 33.3 g/dl (32.0-36.5); MEAN CORPUSCULAR VOLUME 92.5 fl (80.0-96.0); MONO # 0.7 10^3/uL (0.0-0.8); MONO % 6.4 % (2.0-8.0); NEUTROPHILS # 7.9 10^3/uL (1.5-8.5); NEUTROPHILS % 72.4 % (36.0-66.0); PLATELET COUNT, AUTOMATED 267 10^3/uL (150-450); RED BLOOD COUNT 4.81 10^6/uL (4.00-5.40); WHITE BLOOD COUNT 10.9 10^3/uL (4.0-10.0)
[2023-08-14 23:48] LABS: ALBUMIN 3.8 G/DL (3.2-5.2); ALKALINE PHOSPHATASE 114 U/L (46-116); ALT/SGPT 18 U/L (7.0-40); AST/SGOT 21 U/L (<34); BILIRUBIN,DIRECT 0.1 MG/DL (<0.4); BILIRUBIN,TOTAL 0.5 MG/DL (0.3-1.2); BLOOD UREA NITROGEN 8 MG/DL (9-23); CALCIUM LEVEL 9.1 MG/DL (8.3-10.6); CARBON DIOXIDE LEVEL 28 MMOL/L (20-31); CHLORIDE LEVEL 106 MMOL/L (98-107); CK-MB VALUE MASS 5.4 NG/ML (<3.6); CPK CREATINE PHOSPHOKINASE 226 U/L (34-145); CREATININE FOR GFR 0.76 MG/DL (0.55-1.30); GLOMERULAR FILTRATION RATE > 60.0 (>45); GLUCOSE, FASTING 115 MG/DL (74-106); MB/CK RELATIVE INDEX 2.38 (< OR =4); POTASSIUM SERUM 3.9 MMOL/L (3.5-5.1); SODIUM LEVEL 139 MMOL/L (136-145); TOTAL PROTEIN 6.9 G/DL (5.7-8.2)
[2023-08-14 23:50] LABS: THYROID STIMULATING HORMONE 3.612 uIU/ML (0.55-4.78)
[2023-08-15 00:01] LABS: PROCALCITONIN <0.04 ng/ml
[2023-08-15] MEDS ORDERED: IPRATROPIUM 0.5MG/ALBUTEROL 2.5MG INH SOL UD 3ML (DUONEB) NEB ONE (00:35)
[2023-08-15] MEDS: IPRATROPIUM 0.5MG/ALBUTEROL 2.5MG INH SOL UD 3ML (DUONEB) NEB PRN ×2 (01:24→01:25)
[2023-08-15] MEDS ORDERED: PRED20TA PO ×2 (02:37→23:39)
[2023-08-15] MEDS ORDERED: IPRA0.00 NEB (02:37)
[2023-08-15 04:11] VITALS: BP 108/70; TEMP 97.3; O2SAT 96
[2023-08-15] MEDS ORDERED: ALBU2.5V10 INH (23:39)
[2023-08-15] MEDS ORDERED: MONT10TA97 PO (23:39)
[2023-08-15] MEDS ORDERED: MOME13HF7 INH (23:39)
[2023-08-15] MEDS ORDERED: IPRA0.00 INH (23:39)
[2023-08-15] MEDS ORDERED: EPIN11.7 INH (23:39)
[2023-08-15] MEDS ORDERED: ALBU8.5H INH (23:39)
[2023-08-15] MEDS ORDERED: D-20TAB PO (23:39)
== END 2023-08-15 04:28 | disposition home or self-care (01) ==
LOC: EDBD 22:03 → M ED 22:03
DX: J45.901 Unspecified asthma with (acute) exacerbation (principal); R22.1 Localized swelling, mass and lump, neck; J44.9 Chronic obstructive pulmonary disease, unspecified; Z88.0 Allergy status to penicillin; Z88.8 Allergy status to other drugs, medicaments and biological substances; Z91.018 Allergy to other foods

== ENCOUNTER 2023-08-15 18:05 | Inpatient (IN) | payer MEDICARE, MEDICAID ==
[~2023-08-15] VITALS: Ht 160 cm; Wt 52.0 kg
[~2023-08-15 18:05] MED LIST changes: +IPRA0.00 NEB
[2023-08-15 18:31] LABS: VENOUS BASE EXCESS -0.7 (-2.0-2.0); VENOUS HCO3 26.2 MMOL/L (23.0-27.0); VENOUS O2 SATURATION 53.4 % (60.0-80.0); VENOUS PARTIAL PRESSURE CO2 51.7 mmHg (38.0-50.0); VENOUS PARTIAL PRESSURE O2 30.3 mmHg (30.0-50.0); VENOUS PH 7.323 UNITS (7.330-7.430); VENOUS STANDARD HCO3 22.7 MMOL/L; VENOUS TOTAL CO2 27.8 MMOL/L (24.0-28.0)
[2023-08-15 18:34] LABS: BASO % 0.2 % (0.0-1.0); EOS % 0.1 % (0.0-3.0); HEMATOCRIT 45.1 % (36.0-47.0); LYMPH # 1.2 10^3/uL (1.5-5.0); LYMPH % 11.6 % (24.0-44.0); MEAN CORPUSCULAR HEMOGLOBIN 30.7 pg (27.0-33.0); MEAN CORPUSCULAR HGB CONC 33.3 g/dl (32.0-36.5); MEAN CORPUSCULAR VOLUME 92.4 fl (80.0-96.0); MONO # 0.8 10^3/uL (0.0-0.8); MONO % 7.3 % (2.0-8.0); NEUTROPHILS # 8.5 10^3/uL (1.5-8.5); NEUTROPHILS % 80.5 % (36.0-66.0); PLATELET COUNT, AUTOMATED 289 10^3/uL (150-450); RED BLOOD COUNT 4.88 10^6/uL (4.00-5.40); WHITE BLOOD COUNT 10.6 10^3/uL (4.0-10.0)
[2023-08-15 18:51] LABS: INR 0.96; PROTHROMBIN TIME 12.5 SECONDS (12.5-14.5)
[2023-08-15 19:09] LABS: ALKALINE PHOSPHATASE 113 U/L (46-116); ALT/SGPT 19 U/L (7.0-40); AST/SGOT 21 U/L (<34); BILIRUBIN,DIRECT 0.2 MG/DL (<0.4); BILIRUBIN,TOTAL 0.6 MG/DL (0.3-1.2); BLOOD UREA NITROGEN 15 MG/DL (9-23); CALCIUM LEVEL 9.6 MG/DL (8.3-10.6); CARBON DIOXIDE LEVEL 28 MMOL/L (20-31); CHLORIDE LEVEL 108 MMOL/L (98-107); CREATININE FOR GFR 0.74 MG/DL (0.55-1.30); GLOMERULAR FILTRATION RATE > 60.0 (>45); GLUCOSE, FASTING 124 MG/DL (74-106); POTASSIUM SERUM 4.3 MMOL/L (3.5-5.1); RSV AMPLIFICATION NEGATIVE (NEGATIVE); SODIUM LEVEL 142 MMOL/L (136-145); THYROID STIMULATING HORMONE 1.328 uIU/ML (0.55-4.78); TOTAL PROTEIN 7.1 G/DL (5.7-8.2)
[2023-08-15] MEDS ORDERED: ACETAMINOPHEN TAB 650MG DOSE (2X325MG) PO PRN (19:50)
[2023-08-15] MEDS ORDERED: predniSONE 20 MG TAB PO ONE (19:50)
[2023-08-15] MEDS: IPRATROPIUM 0.5MG/ALBUTEROL 2.5MG INH SOL UD 3ML (DUONEB) NEB SCH (21:11)
[2023-08-15] MEDS ORDERED: MOME13HF7 INH (23:39)
[2023-08-15] MEDS ORDERED: ALBU8.5H INH (23:39)
[2023-08-15] MEDS ORDERED: IPRA0.00 INH (23:39)
[2023-08-15] MEDS ORDERED: MONT10TA97 PO (23:39)
[2023-08-15] MEDS ORDERED: ALBU2.5V10 INH (23:39)
[2023-08-15] MEDS ORDERED: PRED20TA PO (23:39)
[2023-08-15] MEDS ORDERED: D-20TAB PO (23:39)
[2023-08-15] MEDS ORDERED: EPIN11.7 INH (23:39)
[2023-08-15] MEDS ORDERED: HOME MED LIST COMPLETE! XX SCH (23:45)
[2023-08-16] MEDS: IPRATROPIUM 0.5MG/ALBUTEROL 2.5MG INH SOL UD 3ML (DUONEB) NEB SCH ×4 (01:21→19:42)
[2023-08-16] MEDS: IPRATROPIUM 0.5MG/ALBUTEROL 2.5MG INH SOL UD 3ML (DUONEB) NEB PRN (04:35)
[2023-08-16] MEDS: BUDESONIDE 0.5 MG/2 ML INHALATION SUSPENSION NEB SCH ×2 (08:00→19:41)
[2023-08-16] MEDS ORDERED: predniSONE 20 MG TAB PO SCH (09:00)
[2023-08-16] MEDS: PANTOPRAZOLE 40MG TAB (PROTONIX) PO SCH (10:42)
[2023-08-16 11:04] LABS: BLOOD UREA NITROGEN 20 MG/DL (9-23); CALCIUM LEVEL 9.3 MG/DL (8.3-10.6); CARBON DIOXIDE LEVEL 28 MMOL/L (20-31); CHLORIDE LEVEL 109 MMOL/L (98-107); CREATININE FOR GFR 0.76 MG/DL (0.55-1.30); GLOMERULAR FILTRATION RATE > 60.0 (>45); GLUCOSE, FASTING 110 MG/DL (74-106); POTASSIUM SERUM 4.2 MMOL/L (3.5-5.1); SODIUM LEVEL 142 MMOL/L (136-145)
[2023-08-16 14:36] VITALS: BP 146/82; TEMP 96.6; O2SAT 91
[2023-08-17] VITALS (19 sets, daily range): BP systolic 127–172; BP diastolic 88–97; TEMP 97–98.9; O2SAT 88–97
[2023-08-17] MEDS: IPRATROPIUM 0.5MG/ALBUTEROL 2.5MG INH SOL UD 3ML (DUONEB) NEB SCH ×3 (01:46→20:15)
[2023-08-17] MEDS ORDERED: ALBUTEROL SULFATE 2.5MG/0.5ML INH NEB SOLN NEB ONE (02:35)
[2023-08-17] MEDS ORDERED: MAG SULF 1GM/100ML (MAG RUN) 1 GM in IV 1 EA IV ONE (02:40)
[2023-08-17] MEDS ORDERED: NS 500 ML IV ONE (02:50)
[2023-08-17] MEDS ORDERED: FORMOTEROL FUMARATE 20 MCG/2 ML INHALATION SOLUTION (PERFOROMIST) INH SCH (08:00)
[2023-08-17] MEDS: IPRATROPIUM 0.5MG/ALBUTEROL 2.5MG INH SOL UD 3ML (DUONEB) NEB PRN ×2 (08:50→11:45)
[2023-08-17] MEDS: BUDESONIDE 0.5 MG/2 ML INHALATION SUSPENSION NEB SCH ×3 (08:50→20:15)
[2023-08-17] MEDS ORDERED: methylPREDNISolone 125MG 2ML VIAL IV STA (09:12)
[2023-08-17] MEDS: AZITHROMYCIN 250MG TABLET PO SCH (09:33)
[2023-08-17] MEDS: PANTOPRAZOLE 40MG TAB (PROTONIX) PO SCH (09:33)
[2023-08-17] MEDS ORDERED: ISOVUE-370 76% 100ML VIAL As Ordered ONE (10:10)
[2023-08-17 10:19] LABS: ABG BASE EXCESS -0.2 (-2.0-2.0); ABG HCO3 25.4 MMOL/L (22.0-26.0); ABG O2 SATURATION 85.3 % (95.0-99.0); ABG PARTIAL PRESSURE O2 51.9 mmHg (75.0-100.0); ABG TOTAL CO2 26.8 MMOL/L (23.0-31.0)
[2023-08-17] MEDS: FORMOTEROL FUMARATE 20 MCG/2 ML INHALATION SOLUTION (PERFOROMIST) INH SCH ×2 (15:42→20:15)
[2023-08-17] MEDS: methylPREDNISolone 40MG 1ML VIAL IV SCH ×2 (16:05→20:31)
[2023-08-17] MEDS ORDERED: methylPREDNISolone 40MG 1ML VIAL IV SCH (21:00)
[2023-08-17] MEDS: ALBUTEROL SULFATE 2.5MG/0.5ML INH NEB SOLN NEB PRN (21:49)
[2023-08-18] VITALS (27 sets, daily range): BP systolic 128–181; BP diastolic 63–95; TEMP 96.5–98.4; O2SAT 87–97
[2023-08-18] MEDS: IPRATROPIUM 0.5MG/ALBUTEROL 2.5MG INH SOL UD 3ML (DUONEB) NEB SCH ×4 (00:44→20:37)
[2023-08-18] MEDS: ALBUTEROL SULFATE 2.5MG/0.5ML INH NEB SOLN NEB PRN (00:44)
[2023-08-18] MEDS ORDERED: ALBUTEROL SULFATE 2.5MG/0.5ML INH NEB SOLN NEB ONE (05:50)
[2023-08-18] MEDS: BUDESONIDE 0.5 MG/2 ML INHALATION SUSPENSION NEB SCH ×3 (08:30→20:37)
[2023-08-18] MEDS: FORMOTEROL FUMARATE 20 MCG/2 ML INHALATION SOLUTION (PERFOROMIST) INH SCH ×3 (08:30→20:37)
[2023-08-18 08:46] LABS: BLOOD UREA NITROGEN 22 MG/DL (9-23); CALCIUM LEVEL 9.4 MG/DL (8.3-10.6); CARBON DIOXIDE LEVEL 31 MMOL/L (20-31); CHLORIDE LEVEL 106 MMOL/L (98-107); CREATININE FOR GFR 0.68 MG/DL (0.55-1.30); GLOMERULAR FILTRATION RATE > 60.0 (>45); GLUCOSE, FASTING 110 MG/DL (74-106); MAGNESIUM LEVEL 2.4 MG/DL (1.8-2.4); POTASSIUM SERUM 4.5 MMOL/L (3.5-5.1); SODIUM LEVEL 140 MMOL/L (136-145)
[2023-08-18] MEDS: methylPREDNISolone 40MG 1ML VIAL IV SCH ×3 (09:19→20:45)
[2023-08-18] MEDS: PANTOPRAZOLE 40MG TAB (PROTONIX) PO SCH (09:19)
[2023-08-18] MEDS: ENOXAPARIN 40MG/0.4ML SYRINGE (J1650 PER 10MG) SC SCH (09:19)
[2023-08-18] MEDS: AZITHROMYCIN 250MG TABLET PO SCH (09:19)
[2023-08-18] MEDS ORDERED: guaiFENesin ER TABLET 600 MG TAB PO ONE (20:30)
[2023-08-19] VITALS (33 sets, daily range): BP systolic 133–165; BP diastolic 77–94; TEMP 97–98.2; O2SAT 89–97
[2023-08-19] MEDS: IPRATROPIUM 0.5MG/ALBUTEROL 2.5MG INH SOL UD 3ML (DUONEB) NEB SCH ×4 (02:13→17:31)
[2023-08-19] MEDS: FORMOTEROL FUMARATE 20 MCG/2 ML INHALATION SOLUTION (PERFOROMIST) INH SCH ×3 (07:36→19:31)
[2023-08-19] MEDS: BUDESONIDE 0.5 MG/2 ML INHALATION SUSPENSION NEB SCH ×3 (07:36→17:31)
[2023-08-19 08:18] LABS: BLOOD UREA NITROGEN 28 MG/DL (9-23); CALCIUM LEVEL 9.4 MG/DL (8.3-10.6); CARBON DIOXIDE LEVEL 32 MMOL/L (20-31); CHLORIDE LEVEL 107 MMOL/L (98-107); CREATININE FOR GFR 0.76 MG/DL (0.55-1.30); GLOMERULAR FILTRATION RATE > 60.0 (>45); GLUCOSE, FASTING 107 MG/DL (74-106); MAGNESIUM LEVEL 2.5 MG/DL (1.8-2.4); POTASSIUM SERUM 4.3 MMOL/L (3.5-5.1); SODIUM LEVEL 144 MMOL/L (136-145)
[2023-08-19] MEDS: PANTOPRAZOLE 40MG TAB (PROTONIX) PO SCH (08:34)
[2023-08-19] MEDS: SENOKOT S TAB PO SCH ×4 (08:34→20:18)
[2023-08-19] MEDS: ENOXAPARIN 40MG/0.4ML SYRINGE (J1650 PER 10MG) SC SCH (08:34)
[2023-08-19] MEDS: AZITHROMYCIN 250MG TABLET PO SCH (08:34)
[2023-08-19] MEDS: methylPREDNISolone 40MG 1ML VIAL IV SCH ×3 (08:34→20:18)
[2023-08-19] MEDS ORDERED: MIRALAX *UNIT DOSE* 17GM PACKET PO PRN (16:30)
[2023-08-19] MEDS: ALBUTEROL SULFATE 2.5MG/0.5ML INH NEB SOLN NEB PRN (21:59)
[2023-08-20] VITALS (26 sets, daily range): BP systolic 136–185; BP diastolic 78–116; TEMP 96.8–98.1; O2SAT 90–100
[2023-08-20] MEDS: IPRATROPIUM 0.5MG/ALBUTEROL 2.5MG INH SOL UD 3ML (DUONEB) NEB SCH ×4 (01:34→19:30)
[2023-08-20 06:51] LABS: BLOOD UREA NITROGEN 30 MG/DL (9-23); CALCIUM LEVEL 9.8 MG/DL (8.3-10.6); CARBON DIOXIDE LEVEL 30 MMOL/L (20-31); CHLORIDE LEVEL 104 MMOL/L (98-107); CREATININE FOR GFR 0.63 MG/DL (0.55-1.30); GLOMERULAR FILTRATION RATE > 60.0 (>45); GLUCOSE, FASTING 115 MG/DL (74-106); MAGNESIUM LEVEL 2.4 MG/DL (1.8-2.4); SODIUM LEVEL 140 MMOL/L (136-145)
[2023-08-20] MEDS ORDERED: MAGNESIUM CITRATE 300ML BTL PO ONE (07:00)
[2023-08-20] MEDS: FORMOTEROL FUMARATE 20 MCG/2 ML INHALATION SOLUTION (PERFOROMIST) INH SCH ×2 (07:39→19:30)
[2023-08-20] MEDS: BUDESONIDE 0.5 MG/2 ML INHALATION SUSPENSION NEB SCH ×2 (07:39→19:31)
[2023-08-20] MEDS: methylPREDNISolone 40MG 1ML VIAL IV SCH ×3 (09:54→20:36)
[2023-08-20] MEDS: SENOKOT S TAB PO SCH ×2 (09:54→20:36)
[2023-08-20] MEDS: ENOXAPARIN 40MG/0.4ML SYRINGE (J1650 PER 10MG) SC SCH (09:54)
[2023-08-20] MEDS: PANTOPRAZOLE 40MG TAB (PROTONIX) PO SCH (09:54)
[2023-08-21] VITALS (30 sets, daily range): BP systolic 122–172; BP diastolic 73–86; TEMP 97.4–98.4; O2SAT 87–100
[2023-08-21] MEDS: IPRATROPIUM 0.5MG/ALBUTEROL 2.5MG INH SOL UD 3ML (DUONEB) NEB SCH ×4 (01:01→19:27)
[2023-08-21 06:24] LABS: BLOOD UREA NITROGEN 26 MG/DL (9-23); CALCIUM LEVEL 9.6 MG/DL (8.3-10.6); CARBON DIOXIDE LEVEL 38 MMOL/L (20-31); CHLORIDE LEVEL 105 MMOL/L (98-107); GLOMERULAR FILTRATION RATE > 60.0 (>45); GLUCOSE, FASTING 119 MG/DL (74-106); MAGNESIUM LEVEL 2.6 MG/DL (1.8-2.4); POTASSIUM SERUM 4.7 MMOL/L (3.5-5.1); SODIUM LEVEL 144 MMOL/L (136-145)
[2023-08-21] MEDS: BUDESONIDE 0.5 MG/2 ML INHALATION SUSPENSION NEB SCH ×2 (07:27→19:27)
[2023-08-21] MEDS: FORMOTEROL FUMARATE 20 MCG/2 ML INHALATION SOLUTION (PERFOROMIST) INH SCH ×2 (07:27→19:27)
[2023-08-21 07:43] LABS: HEMATOCRIT 47.3 % (36.0-47.0); HEMOGLOBIN 14.8 g/dl (12.0-15.5); MEAN CORPUSCULAR HEMOGLOBIN 30.2 pg (27.0-33.0); MEAN CORPUSCULAR HGB CONC 31.3 g/dl (32.0-36.5); MEAN CORPUSCULAR VOLUME 96.5 fl (80.0-96.0); PLATELET COUNT, AUTOMATED 264 10^3/uL (150-450); WHITE BLOOD COUNT 11.4 10^3/uL (4.0-10.0)
[2023-08-21] MEDS: ENOXAPARIN 40MG/0.4ML SYRINGE (J1650 PER 10MG) SC SCH (08:31)
[2023-08-21] MEDS: methylPREDNISolone 40MG 1ML VIAL IV SCH (08:32)
[2023-08-21] MEDS: SENOKOT S TAB PO SCH ×2 (08:32→20:22)
[2023-08-22] VITALS (29 sets, daily range): BP systolic 112–144; BP diastolic 68–80; TEMP 97.9–98.4; O2SAT 91–97
[2023-08-22] MEDS: IPRATROPIUM 0.5MG/ALBUTEROL 2.5MG INH SOL UD 3ML (DUONEB) NEB SCH ×2 (02:18→07:24)
[2023-08-22 06:17] LABS: BLOOD UREA NITROGEN 26 MG/DL (9-23); CALCIUM LEVEL 9.2 MG/DL (8.3-10.6); CARBON DIOXIDE LEVEL 38 MMOL/L (20-31); CHLORIDE LEVEL 104 MMOL/L (98-107); CREATININE FOR GFR 0.73 MG/DL (0.55-1.30); GLOMERULAR FILTRATION RATE > 60.0 (>45); GLUCOSE, FASTING 98 MG/DL (74-106); MAGNESIUM LEVEL 2.3 MG/DL (1.8-2.4); POTASSIUM SERUM 4.1 MMOL/L (3.5-5.1); SODIUM LEVEL 144 MMOL/L (136-145)
[2023-08-22] MEDS: BUDESONIDE 0.5 MG/2 ML INHALATION SUSPENSION NEB SCH ×2 (07:24→19:52)
[2023-08-22] MEDS: FORMOTEROL FUMARATE 20 MCG/2 ML INHALATION SOLUTION (PERFOROMIST) INH SCH ×2 (07:24→19:52)
[2023-08-22] MEDS: ENOXAPARIN 40MG/0.4ML SYRINGE (J1650 PER 10MG) SC SCH (08:25)
[2023-08-22] MEDS: SENOKOT S TAB PO SCH ×2 (08:25→20:36)
[2023-08-22] MEDS ORDERED: methylPREDNISolone 40MG 1ML VIAL IV SCH (09:00)
[2023-08-22] MEDS ORDERED: IPRATROPIUM HFA INHALER 12.9 GRAMS (ATROVENT HFA) INH SCH (09:55)
[2023-08-22] MEDS: COMBIVENT RESPIMAT 100-20MCG INHALER 4GM INH SCH ×3 (12:53→19:52)
[2023-08-22] MEDS ORDERED: ALBUTEROL 90 MCG/ACT 8GM HFA INHALER INH SCH (13:00)
[2023-08-22 13:15] LABS: PROCALCITONIN <0.04 ng/ml
[2023-08-23] VITALS (8 sets, daily range): BP systolic 110–128; BP diastolic 64–75; TEMP 97.1–97.8; O2SAT 92–96
[2023-08-23 05:20] LABS: BLOOD UREA NITROGEN 24 MG/DL (9-23); CALCIUM LEVEL 8.2 MG/DL (8.3-10.6); CARBON DIOXIDE LEVEL 36 MMOL/L (20-31); CHLORIDE LEVEL 105 MMOL/L (98-107); GLOMERULAR FILTRATION RATE > 60.0 (>45); GLUCOSE, FASTING 100 MG/DL (74-106); MAGNESIUM LEVEL 1.8 MG/DL (1.8-2.4); POTASSIUM SERUM 3.9 MMOL/L (3.5-5.1); SODIUM LEVEL 143 MMOL/L (136-145)
[2023-08-23] MEDS: BUDESONIDE 0.5 MG/2 ML INHALATION SUSPENSION NEB SCH (08:00)
[2023-08-23] MEDS: FORMOTEROL FUMARATE 20 MCG/2 ML INHALATION SOLUTION (PERFOROMIST) INH SCH (08:00)
[2023-08-23] MEDS: COMBIVENT RESPIMAT 100-20MCG INHALER 4GM INH SCH ×3 (08:51→15:24)
[2023-08-23] MEDS ORDERED: predniSONE 20 MG TAB PO SCH (09:00)
[2023-08-23] MEDS: ENOXAPARIN 40MG/0.4ML SYRINGE (J1650 PER 10MG) SC SCH (09:41)
[2023-08-23] MEDS: SENOKOT S TAB PO SCH (09:42)
[2023-08-23] MEDS ORDERED: IPRAINH INH (13:35)
[2023-08-23] MEDS ORDERED: MOME13HF7 INH (13:36)
== END 2023-08-23 16:55 | disposition home or self-care (01) | DRG 189 ==
LOC: M ED 18:05 → EDBD 18:05 → M ED INP 19:50 → ENRESERV 08-17 08:21 → OBSVTOIN 08-17 09:12 → M PCU 08-17 13:41 → UNDODISIN 08-23 15:55
PROVIDERS: ADMIT Internal Medicine; ATTEND Internal Medicine
DX: J96.21 Acute and chronic respiratory failure with hypoxia (principal); J44.1 Chronic obstructive pulmonary disease with (acute) exacerbation; F20.1 Disorganized schizophrenia; I10 Essential (primary) hypertension; E78.5 Hyperlipidemia, unspecified; L40.9 Psoriasis, unspecified; F31.9 Bipolar disorder, unspecified; K21.9 Gastro-esophageal reflux disease without esophagitis; E55.9 Vitamin D deficiency, unspecified; Z87.891 Personal history of nicotine dependence; Z79.52 Long term (current) use of systemic steroids; Z88.0 Allergy status to penicillin; Z79.899 Other long term (current) drug therapy; Z88.8 Allergy status to other drugs, medicaments and biological substances

== ENCOUNTER 2023-12-04 15:52 | Inpatient (IN) | payer OTHER, MEDICAID ==
[~2023-12-04] VITALS: Ht 162.6 cm; Wt 59.0 kg
[~2023-12-04 15:52] MED LIST changes: +ALBU2.5V10 INH; +ALBU8.5H INH; +D-20TAB PO; +EPIN11.7 INH; +IPRA0.00 INH; +IPRAINH INH; +MONT10TA97 PO
[2023-12-04] MEDS ORDERED: ALBUTEROL SULFATE 2.5MG/0.5ML INH NEB SOLN As Ordered ONE (15:56)
[2023-12-04] MEDS: methylPREDNISolone 125MG 2ML VIAL IV ONE (16:15)
[2023-12-04] MEDS: MAG SULF 1GM/100ML (MAG RUN) 1 GM in IV 1 EA IV ONE (16:15)
[2023-12-04] MEDS: IPRATROPIUM 0.5MG/ALBUTEROL 2.5MG INH SOL UD 3ML (DUONEB) NEB ONE ×2 (16:24→17:50)
[2023-12-04] MEDS: ALBUTEROL SULFATE 2.5MG/0.5ML INH NEB SOLN INH ONE (16:24)
[2023-12-04 16:26] LABS: ABG BASE EXCESS -2.9 (-2.0-2.0); ABG O2 SATURATION 98.8 % (95.0-99.0); ABG PARTIAL PRESSURE CO2 49.3 mmHg (35.0-45.0); ABG PARTIAL PRESSURE O2 173.3 mmHg (75.0-100.0); ABG STANDARD HCO3 22.1 MMOL/L. (22.0-26.0); ABG TOTAL CO2 25.5 MMOL/L (23.0-31.0); ABG pH (ARTERIAL) 7.305 UNITS (7.350-7.450)
[2023-12-04 16:58] LABS: BASO # 0.1 10^3/uL (0.0-0.2); BASO % 0.5 % (0.0-1.0); EOS # 0.1 10^3/uL (0.0-0.5); EOS % 0.8 % (0.0-3.0); HEMOGLOBIN 15.1 g/dl (12.0-15.5); LYMPH # 1.2 10^3/uL (1.5-5.0); LYMPH % 8.7 % (24.0-44.0); MEAN CORPUSCULAR HGB CONC 32.8 g/dl (32.0-36.5); MEAN CORPUSCULAR VOLUME 91.5 fl (80.0-96.0); MONO # 0.5 10^3/uL (0.0-0.8); MONO % 3.5 % (2.0-8.0); NEUTROPHILS # 12.2 10^3/uL (1.5-8.5); NEUTROPHILS % 86.1 % (36.0-66.0); PLATELET COUNT, AUTOMATED 261 10^3/uL (150-450); RED BLOOD COUNT 5.03 10^6/uL (4.00-5.40); WHITE BLOOD COUNT 14.2 10^3/uL (4.0-10.0)
[2023-12-04 17:22] LABS: CK-MB VALUE MASS 7.3 NG/ML (<3.6)
[2023-12-04 17:23] LABS: CPK CREATINE PHOSPHOKINASE 175 U/L (34-145); MB/CK RELATIVE INDEX 4.17 (< OR =4)
[2023-12-04 17:28] LABS: ALBUMIN 4.3 G/DL (3.2-5.2); ALKALINE PHOSPHATASE 106 U/L (46-116); ALT/SGPT 26 U/L (7.0-40); AST/SGOT 27 U/L (<34); BILIRUBIN,DIRECT 0.2 MG/DL (<0.4); BILIRUBIN,TOTAL 0.6 MG/DL (0.3-1.2); BLOOD UREA NITROGEN 10 MG/DL (9-23); CALCIUM LEVEL 9.3 MG/DL (8.3-10.6); CARBON DIOXIDE LEVEL 26 MMOL/L (20-31); CHLORIDE LEVEL 104 MMOL/L (98-107); CK-MB VALUE MASS 7.7 NG/ML (<3.6); CPK CREATINE PHOSPHOKINASE 186 U/L (34-145); CREATININE FOR GFR 0.61 MG/DL (0.55-1.30); GLOMERULAR FILTRATION RATE > 60.0 (>39); GLUCOSE, FASTING 139 MG/DL (74-106); MB/CK RELATIVE INDEX 4.13 (< OR =4); POTASSIUM SERUM 4.1 MMOL/L (3.5-5.1); SODIUM LEVEL 139 MMOL/L (136-145); THYROID STIMULATING HORMONE 3.686 uIU/ML (0.55-4.78); THYROXINE (T4) 7.9 UG/DL (4.5-10.9); TOTAL PROTEIN 7.3 G/DL (5.7-8.2)
[2023-12-04] MEDS ORDERED: IPRAINH INH (18:04)
[2023-12-04] MEDS ORDERED: MUCI1LIQ3 PO (18:04)
[2023-12-04] MEDS ORDERED: HOME MED LIST COMPLETE! XX SCH (18:05)
[2023-12-04] MEDS: ONDANSETRON 4MG 2ML VIAL IV STA (18:10)
[2023-12-04] MEDS ORDERED: AZITHROMYCIN 250MG TABLET PO SCH (21:00)
[2023-12-04] MEDS: IPRATROPIUM 0.5MG/ALBUTEROL 2.5MG INH SOL UD 3ML (DUONEB) NEB SCH (21:01)
[2023-12-04] MEDS: BUDESONIDE 0.5 MG/2 ML INHALATION SUSPENSION NEB SCH (21:01)
[2023-12-04] MEDS: SENOKOT S TAB PO SCH (22:30)
[2023-12-04] MEDS: DOXYCYCLINE HYCLATE 100 MG in D5W MINI-BAG PLUS 100 ML IV SCH (22:31)
[2023-12-04] MEDS: FORMOTEROL FUMARATE 20 MCG/2 ML INHALATION SOLUTION (PERFOROMIST) INH SCH (23:02)
[2023-12-04 23:08] VITALS: BP 160/110; TEMP 97.2; O2SAT 95
[2023-12-04] MEDS: ACETAMINOPHEN TAB 650MG DOSE (2X325MG) PO PRN (23:38)
[2023-12-04 23:49] VITALS: O2SAT 97
[2023-12-05] VITALS (26 sets, daily range): BP systolic 118–142; BP diastolic 56–87; TEMP 97.3–97.5; O2SAT 88–99
[2023-12-05 06:06] LABS: BASO % 0.1 % (0.0-1.0); HEMOGLOBIN 14.9 g/dl (12.0-15.5); LYMPH # 0.6 10^3/uL (1.5-5.0); MEAN CORPUSCULAR HEMOGLOBIN 30.4 pg (27.0-33.0); MEAN CORPUSCULAR HGB CONC 33.9 g/dl (32.0-36.5); MEAN CORPUSCULAR VOLUME 89.8 fl (80.0-96.0); MONO # 0.1 10^3/uL (0.0-0.8); MONO % 1.5 % (2.0-8.0); NEUTROPHILS # 7.2 10^3/uL (1.5-8.5); NEUTROPHILS % 91.1 % (36.0-66.0); PLATELET COUNT, AUTOMATED 240 10^3/uL (150-450); WHITE BLOOD COUNT 7.9 10^3/uL (4.0-10.0)
[2023-12-05] MEDS: methylPREDNISolone 40MG 1ML VIAL IV SCH (06:26)
[2023-12-05 06:39] LABS: BLOOD UREA NITROGEN 14 MG/DL (9-23); CALCIUM LEVEL 9.1 MG/DL (8.3-10.6); CARBON DIOXIDE LEVEL 27 MMOL/L (20-31); CHLORIDE LEVEL 104 MMOL/L (98-107); CREATININE FOR GFR 0.58 MG/DL (0.55-1.30); GLOMERULAR FILTRATION RATE > 60.0 (>39); GLUCOSE, FASTING 138 MG/DL (74-106); POTASSIUM SERUM 4.2 MMOL/L (3.5-5.1); SODIUM LEVEL 139 MMOL/L (136-145)
[2023-12-05] MEDS: PANTOPRAZOLE 40MG TAB (PROTONIX) PO SCH (07:53)
[2023-12-05] MEDS: ENOXAPARIN 40MG/0.4ML SYRINGE (J1650 PER 10MG) SC SCH (07:54)
[2023-12-05] MEDS: DOXYCYCLINE HYCLATE 100MG TABLET PO SCH (09:41)
[2023-12-06 06:00] VITALS: BP 123/89; TEMP 97.5; O2SAT 90
[2023-12-06 06:59] LABS: BASO % 0.1 % (0.0-1.0); HEMATOCRIT 42.3 % (36.0-47.0); HEMOGLOBIN 14.2 g/dl (12.0-15.5); LYMPH # 0.6 10^3/uL (1.5-5.0); LYMPH % 3.5 % (24.0-44.0); MEAN CORPUSCULAR HEMOGLOBIN 30.5 pg (27.0-33.0); MEAN CORPUSCULAR HGB CONC 33.6 g/dl (32.0-36.5); MEAN CORPUSCULAR VOLUME 90.8 fl (80.0-96.0); MONO # 0.5 10^3/uL (0.0-0.8); MONO % 2.7 % (2.0-8.0); NEUTROPHILS # 17.2 10^3/uL (1.5-8.5); NEUTROPHILS % 93.2 % (36.0-66.0); PLATELET COUNT, AUTOMATED 254 10^3/uL (150-450); RED BLOOD COUNT 4.66 10^6/uL (4.00-5.40); WHITE BLOOD COUNT 18.5 10^3/uL (4.0-10.0)
[2023-12-06 07:27] LABS: BLOOD UREA NITROGEN 29 MG/DL (9-23); CALCIUM LEVEL 9.5 MG/DL (8.3-10.6); CARBON DIOXIDE LEVEL 27 MMOL/L (20-31); CHLORIDE LEVEL 104 MMOL/L (98-107); CREATININE FOR GFR 0.69 MG/DL (0.55-1.30); GLOMERULAR FILTRATION RATE > 60.0 (>39); GLUCOSE, FASTING 119 MG/DL (74-106); SODIUM LEVEL 139 MMOL/L (136-145)
[2023-12-06 11:56] VITALS: O2SAT 92
[2023-12-06] MEDS: guaiFENesin ER TABLET 600 MG TAB PO SCH (13:47)
[2023-12-06 14:00] VITALS: BP 147/92; TEMP 97.3; O2SAT 92
[2023-12-06 20:50] VITALS: BP 144/96; TEMP 98.2; O2SAT 91
[2023-12-07] MEDS: ACETAMINOPHEN *IV* 1,000 MG in IV 1 EA IV ONE (01:21)
[2023-12-07 01:48] LABS: VENOUS BASE EXCESS 0.8 (-2.0-2.0); VENOUS HCO3 25.6 MMOL/L (23.0-27.0); VENOUS O2 SATURATION 95.7 % (60.0-80.0); VENOUS PARTIAL PRESSURE CO2 41.5 mmHg (38.0-50.0); VENOUS PARTIAL PRESSURE O2 83.6 mmHg (30.0-50.0); VENOUS PH 7.408 UNITS (7.330-7.430); VENOUS STANDARD HCO3 25.2 MMOL/L; VENOUS TOTAL CO2 26.9 MMOL/L (24.0-28.0)
[2023-12-07 01:56] LABS: BASO % 0.1 % (0.0-1.0); HEMATOCRIT 41.8 % (36.0-47.0); LYMPH # 0.7 10^3/uL (1.5-5.0); LYMPH % 3.9 % (24.0-44.0); MEAN CORPUSCULAR HEMOGLOBIN 30.7 pg (27.0-33.0); MEAN CORPUSCULAR HGB CONC 33.5 g/dl (32.0-36.5); MEAN CORPUSCULAR VOLUME 91.7 fl (80.0-96.0); MONO # 0.5 10^3/uL (0.0-0.8); MONO % 2.5 % (2.0-8.0); NEUTROPHILS # 17.1 10^3/uL (1.5-8.5); NEUTROPHILS % 93.1 % (36.0-66.0); PLATELET COUNT, AUTOMATED 256 10^3/uL (150-450); RED BLOOD COUNT 4.56 10^6/uL (4.00-5.40); WHITE BLOOD COUNT 18.3 10^3/uL (4.0-10.0)
[2023-12-07 03:19] LABS: PROCALCITONIN <0.04 ng/ml
[2023-12-07 03:23] LABS: ALBUMIN 3.8 G/DL (3.2-5.2); ALKALINE PHOSPHATASE 81 U/L (46-116); ALT/SGPT 23 U/L (7.0-40); AST/SGOT 24 U/L (<34); BILIRUBIN,TOTAL 0.5 MG/DL (0.3-1.2); BLOOD UREA NITROGEN 32 MG/DL (9-23); CALCIUM LEVEL 9.2 MG/DL (8.3-10.6); CARBON DIOXIDE LEVEL 26 MMOL/L (20-31); CHLORIDE LEVEL 106 MMOL/L (98-107); CREATININE FOR GFR 0.71 MG/DL (0.55-1.30); GLOMERULAR FILTRATION RATE > 60.0 (>39); GLUCOSE, FASTING 122 MG/DL (74-106); MAGNESIUM LEVEL 2.3 MG/DL (1.8-2.4); POTASSIUM SERUM 4.2 MMOL/L (3.5-5.1); SODIUM LEVEL 139 MMOL/L (136-145); TOTAL PROTEIN 6.5 G/DL (5.7-8.2)
[2023-12-07 05:41] VITALS: BP 112/66; TEMP 97.5; O2SAT 94
[2023-12-07 06:45] LABS: BASO % 0.1 % (0.0-1.0); HEMOGLOBIN 13.8 g/dl (12.0-15.5); LYMPH # 0.9 10^3/uL (1.5-5.0); LYMPH % 5.9 % (24.0-44.0); MEAN CORPUSCULAR HEMOGLOBIN 29.7 pg (27.0-33.0); MEAN CORPUSCULAR HGB CONC 32.9 g/dl (32.0-36.5); MEAN CORPUSCULAR VOLUME 90.3 fl (80.0-96.0); MONO # 0.7 10^3/uL (0.0-0.8); MONO % 4.8 % (2.0-8.0); NEUTROPHILS # 13.6 10^3/uL (1.5-8.5); NEUTROPHILS % 88.7 % (36.0-66.0); PLATELET COUNT, AUTOMATED 252 10^3/uL (150-450); RED BLOOD COUNT 4.65 10^6/uL (4.00-5.40); WHITE BLOOD COUNT 15.4 10^3/uL (4.0-10.0)
[2023-12-07 07:20] LABS: BLOOD UREA NITROGEN 34 MG/DL (9-23); CALCIUM LEVEL 9.4 MG/DL (8.3-10.6); CARBON DIOXIDE LEVEL 29 MMOL/L (20-31); CHLORIDE LEVEL 106 MMOL/L (98-107); CREATININE FOR GFR 0.79 MG/DL (0.55-1.30); GLOMERULAR FILTRATION RATE > 60.0 (>39); GLUCOSE, FASTING 105 MG/DL (74-106); POTASSIUM SERUM 4.4 MMOL/L (3.5-5.1); SODIUM LEVEL 142 MMOL/L (136-145)
[2023-12-07] MEDS: predniSONE 20 MG TAB PO SCH (10:46)
[2023-12-07] MEDS ORDERED: SENOKOT S TAB PO PRN (11:20)
[2023-12-07] MEDS: MULTIVITAMINS/MINERALS THERAP 1 TAB PO SCH (13:13)
[2023-12-07] MEDS: ARTIFICIAL TEARS DROPS 15ML BTL (VISINE DRY RELIEF) OU PRN (13:13)
[2023-12-07 14:00] VITALS: BP 134/81; TEMP 97.7; O2SAT 92
[2023-12-07 17:34] VITALS: O2SAT 88
[2023-12-07 19:43] VITALS: BP 132/94; TEMP 97.7; O2SAT 94
[2023-12-08] MEDS: CETIRIZINE (ZyrTEC) 10 MG TAB PO SCH (02:27)
[2023-12-08] MEDS: FLUTICASONE PROP 0.05% NASAL SPRAY 16 GM (FLONASE) NARES SCH (02:27)
[2023-12-08 06:25] VITALS: BP 122/76; TEMP 97.3; O2SAT 90
[2023-12-08 07:10] LABS: BASO % 0.1 % (0.0-1.0); EOS # 0.1 10^3/uL (0.0-0.5); EOS % 0.5 % (0.0-3.0); HEMATOCRIT 40.4 % (36.0-47.0); HEMOGLOBIN 13.2 g/dl (12.0-15.5); LYMPH # 2.8 10^3/uL (1.5-5.0); LYMPH % 22.6 % (24.0-44.0); MEAN CORPUSCULAR HEMOGLOBIN 30.3 pg (27.0-33.0); MEAN CORPUSCULAR HGB CONC 32.7 g/dl (32.0-36.5); MEAN CORPUSCULAR VOLUME 92.7 fl (80.0-96.0); MONO # 1.3 10^3/uL (0.0-0.8); NEUTROPHILS # 8.4 10^3/uL (1.5-8.5); NEUTROPHILS % 66.3 % (36.0-66.0); PLATELET COUNT, AUTOMATED 229 10^3/uL (150-450); RED BLOOD COUNT 4.36 10^6/uL (4.00-5.40); WHITE BLOOD COUNT 12.6 10^3/uL (4.0-10.0)
[2023-12-08 07:37] LABS: BLOOD UREA NITROGEN 26 MG/DL (9-23); CALCIUM LEVEL 8.8 MG/DL (8.3-10.6); CARBON DIOXIDE LEVEL 29 MMOL/L (20-31); CHLORIDE LEVEL 108 MMOL/L (98-107); CREATININE FOR GFR 0.71 MG/DL (0.55-1.30); GLOMERULAR FILTRATION RATE > 60.0 (>39); GLUCOSE, FASTING 76 MG/DL (74-106); POTASSIUM SERUM 3.7 MMOL/L (3.5-5.1); SODIUM LEVEL 143 MMOL/L (136-145)
[2023-12-08] MEDS: OLANZapine 5 MG TAB PO PRN (08:51)
[2023-12-08] MEDS: KETOCONAZOLE 2% CREAM TOP SCH (17:05)
[2023-12-08 20:00] VITALS: BP 135/82; TEMP 97.7; O2SAT 90
[2023-12-09 00:15] VITALS: O2SAT 83; O2SAT 89
[2023-12-09 01:03] VITALS: O2SAT 83
[2023-12-09 01:05] VITALS: O2SAT 91
[2023-12-09 06:30] VITALS: BP 123/80; TEMP 97.7; O2SAT 89
[2023-12-09 07:24] LABS: BASO % 0.2 % (0.0-1.0); EOS # 0.7 10^3/uL (0.0-0.5); EOS % 6.5 % (0.0-3.0); HEMATOCRIT 41.9 % (36.0-47.0); LYMPH # 3.1 10^3/uL (1.5-5.0); LYMPH % 28.6 % (24.0-44.0); MEAN CORPUSCULAR HEMOGLOBIN 30.7 pg (27.0-33.0); MEAN CORPUSCULAR HGB CONC 33.4 g/dl (32.0-36.5); MEAN CORPUSCULAR VOLUME 91.9 fl (80.0-96.0); MONO # 0.9 10^3/uL (0.0-0.8); MONO % 8.1 % (2.0-8.0); NEUTROPHILS % 56.2 % (36.0-66.0); PLATELET COUNT, AUTOMATED 235 10^3/uL (150-450); RED BLOOD COUNT 4.56 10^6/uL (4.00-5.40); WHITE BLOOD COUNT 10.7 10^3/uL (4.0-10.0)
[2023-12-09 07:50] LABS: BLOOD UREA NITROGEN 22 MG/DL (9-23); CALCIUM LEVEL 8.7 MG/DL (8.3-10.6); CARBON DIOXIDE LEVEL 26 MMOL/L (20-31); CHLORIDE LEVEL 110 MMOL/L (98-107); CREATININE FOR GFR 0.62 MG/DL (0.55-1.30); GLOMERULAR FILTRATION RATE > 60.0 (>39); GLUCOSE, FASTING 98 MG/DL (74-106); POTASSIUM SERUM 4.2 MMOL/L (3.5-5.1); SODIUM LEVEL 144 MMOL/L (136-145)
[2023-12-09] MEDS: methylPREDNISolone 125MG 2ML VIAL IV SCH (09:00)
[2023-12-09] MEDS ORDERED: ISOVUE-370 76% 100ML VIAL As Ordered ONE (09:12)
[2023-12-09] MEDS: KETOCONAZOLE 2% CREAM TOP SCH (12:43)
[2023-12-09 14:00] VITALS: BP 147/90; TEMP 97.9; O2SAT 96
[2023-12-09 21:08] VITALS: BP 149/98; TEMP 97.7; O2SAT 92
[2023-12-10 06:09] VITALS: BP 146/97; TEMP 97.2; O2SAT 97
[2023-12-10 06:12] LABS: BASO % 0.1 % (0.0-1.0); HEMATOCRIT 43.9 % (36.0-47.0); HEMOGLOBIN 14.8 g/dl (12.0-15.5); LYMPH # 0.9 10^3/uL (1.5-5.0); LYMPH % 9.6 % (24.0-44.0); MEAN CORPUSCULAR HEMOGLOBIN 30.8 pg (27.0-33.0); MEAN CORPUSCULAR HGB CONC 33.7 g/dl (32.0-36.5); MEAN CORPUSCULAR VOLUME 91.3 fl (80.0-96.0); MONO # 0.2 10^3/uL (0.0-0.8); MONO % 1.9 % (2.0-8.0); NEUTROPHILS # 7.8 10^3/uL (1.5-8.5); NEUTROPHILS % 87.9 % (36.0-66.0); PLATELET COUNT, AUTOMATED 257 10^3/uL (150-450); RED BLOOD COUNT 4.81 10^6/uL (4.00-5.40); WHITE BLOOD COUNT 8.8 10^3/uL (4.0-10.0)
[2023-12-10 06:40] LABS: BLOOD UREA NITROGEN 18 MG/DL (9-23); CALCIUM LEVEL 9.4 MG/DL (8.3-10.6); CARBON DIOXIDE LEVEL 28 MMOL/L (20-31); CHLORIDE LEVEL 106 MMOL/L (98-107); CREATININE FOR GFR 0.53 MG/DL (0.55-1.30); GLOMERULAR FILTRATION RATE > 60.0 (>39); GLUCOSE, FASTING 129 MG/DL (74-106); SODIUM LEVEL 141 MMOL/L (136-145)
[2023-12-10 14:00] VITALS: BP 132/82; TEMP 97.2; O2SAT 99
[2023-12-10 20:00] VITALS: BP 154/104; TEMP 97.5; O2SAT 95
[2023-12-10 21:00] VITALS: BP 146/86
[2023-12-11 05:56] VITALS: BP 127/87; TEMP 97.2; O2SAT 94
[2023-12-11] MEDS: ALBUTEROL SULFATE 2.5MG/0.5ML INH NEB SOLN NEB PRN (13:18)
[2023-12-11 14:00] VITALS: BP 139/105; TEMP 97.7; O2SAT 93
[2023-12-11 16:34] VITALS: O2SAT 94
[2023-12-11 22:00] VITALS: BP 146/82; TEMP 97.5; O2SAT 94
[2023-12-12 05:19] VITALS: BP 134/97; TEMP 96.8; O2SAT 96
[2023-12-12] MEDS ORDERED: PRED20TA PO ×2 (07:56→19:38)
[2023-12-12] MEDS ORDERED: MUCI600T31 PO (07:56)
[2023-12-12] MEDS ORDERED: SENN8.6T58 PO (07:56)
[2023-12-12] MEDS ORDERED: COLA100C5 PO (07:56)
[2023-12-12] MEDS: predniSONE 20 MG TAB PO SCH (08:18)
[2023-12-12] MEDS ORDERED: METO1TAB87 PO (08:55)
[2023-12-12 10:56] VITALS: BP 136/98
[2023-12-12] MEDS: METOPROLOL TART 12.5 MG PER 1/2 TAB PO SCH (10:56)
[2023-12-12] MEDS ORDERED: IPRA0.00 INH (19:38)
[2023-12-12] MEDS ORDERED: ALBU8.5H INH (19:38)
[2023-12-12] MEDS ORDERED: ALBU2.5V10 INH (19:38)
== END 2023-12-12 13:42 | disposition home or self-care (01) | DRG 190 ==
LOC: M ED 15:52 → M ED INP 19:39 → M MSPAV 23:08
PROVIDERS: ADMIT Internal Medicine Nephrology; ATTEND Internal Medicine
DX: J44.1 Chronic obstructive pulmonary disease with (acute) exacerbation (principal); J96.01 Acute respiratory failure with hypoxia; F20.0 Paranoid schizophrenia; I10 Essential (primary) hypertension; K21.9 Gastro-esophageal reflux disease without esophagitis; L40.9 Psoriasis, unspecified; E78.5 Hyperlipidemia, unspecified; M26.622 Arthralgia of left temporomandibular joint; L08.9 Local infection of the skin and subcutaneous tissue, unspecified; F41.9 Anxiety disorder, unspecified; R51.9 Headache, unspecified; F17.200 Nicotine dependence, unspecified, uncomplicated; Z80.3 Family history of malignant neoplasm of breast; Z79.899 Other long term (current) drug therapy; Z88.0 Allergy status to penicillin; Z88.8 Allergy status to other drugs, medicaments and biological substances; Z91.018 Allergy to other foods; Z11.52 Encounter for screening for COVID-19